=== PATIENT | female | born 1940 | race Caucasian/White ===

== ENCOUNTER → 2019-07-27 | Outpatient (CLI) | payer MEDICARE, OTHER ==
--- NOTE | 2019-07-28 09:11 | CT ---
EXAMINATION TYPE: CT abdomen pelvis w con DATE OF EXAM: 07/27/2019 HISTORY: Non-hodgkin's lymphoma. CT DLP: 457.8mGycm Automated Exposure Control for Dose Reduction was Utilized. CONTRAST: CT scan of the abdomen and pelvis is performed with IV Contrast, patient injected with 100ml mL of Is ovue 300. COMPARISON: None. FINDINGS: LUNG BASES: 4 mm left basilar solid pulmonary nodule is seen on image 8 of series 4. Mild fibrotic ch anges are present at the lung bases.. LIVER/GB: Hepatic parenchyma is diffusely hypoattenuated in comparison to that of the spleen, most co mmonly seen in hepatic steatosis. This finding limits evaluation for hepatic masses. No gross evidenc e of hepatic mass is seen. No intrahepatic biliary ductal dilatation. No cholelithiasis on CT. PANCREAS: No significant abnormality is seen. SPLEEN: Surgically absent. ADRENALS: No significant abnormality is seen. KIDNEYS: Severe left renal atrophy with diminutive size of the left renal artery. Right kidney demons trates multiple hypoattenuated subcentimeter lesions that are too small to accurately characterize an d a right inferior pole 1.4 cm solid mass with a Hounsfield unit of 50 and delayed average Hounsfield unit of 60. BOWEL: Moderate degree colonic fecal stasis. No dilated large or small bowel. LYMPH NODES: No greater than 1cm abdominal or pelvic lymph nodes are appreciated. OSSEOUS STRUCTURES: There is diffuse osseous demineralization and mild degenerative change of the spi ne. Transitional vertebrae at S1-S2. L1 compression deformity has height loss of approximately 20% an d mild 1 mm retropulsion of the superior endplate into the spinal canal without significant spinal ca nal stenosis. Levoscoliosis of the lumbar spine is also seen. OTHER: Prior ventral hernia repair is seen with numerous clips in the anterior abdomen and also surro unding the greater curvature of the gastric fundus. Moderate atheromatous changes of the abdominal ao rta is branches. Infrarenal ectasia measuring up to 2.2 x 2.2 cm.. IMPRESSION: 1. Small solid mass of the right lower pole of the kidney measuring 1.4 cm. Consideration could be gi shira to either percutaneous biopsy or definitive characterization with contrast-enhanced MRI of the ab domen. 2. No suspicious adenopathy in the abdomen or pelvis. 3. Mild degree hepatic steatosis. 4. L1 compression deformity that is age-indeterminate without priors for comparison. Correlate with p oint tenderness. MRI could evaluate for bone marrow edema if there is further clinical concern. 5. 4 mm pulmonary nodule of the left lung base. Consideration could be given to full workup of the ch est with CT thorax or follow-up for the left basilar pulmonary nodule CT thorax in one year.
== END | disposition home or self-care (01) ==
LOC: MERGE 07-20 14:00 → RADCTMAIN 14:55
PROVIDERS: ATTEND Family Medicine
DX: N28.89 Other specified disorders of kidney and ureter (principal); K76.0 Fatty (change of) liver, not elsewhere classified; C85.90 Non-Hodgkin lymphoma, unspecified, unspecified site; Z91.048 Other nonmedicinal substance allergy status
CPT/HCPCS: 82565; 84520; 74177; 36415; Q9967

== ENCOUNTER → 2019-08-12 | Outpatient (CLI) | payer MEDICARE, OTHER ==
--- NOTE | 2019-08-12 15:50 | CT ---
EXAMINATION TYPE: CT chest wo con DATE OF EXAM: 08/12/2019 COMPARISON: CT abdomen pelvis 07/27/2019 HISTORY: follow up pulmonary nodule CT DLP: 147.2 mGycm, Automated exposure control for dose reduction was used. CONTRAST: Performed injected with 0 mL of Isovue 300. TECHNIQUE: Axial images were obtained at 5 mm thick sections. Reconstructed images are reviewed on [employer] computer in the coronal plane. FINDINGS: Portion of the thyroid visualized is normal. There is a 0.7 cm nodule within the posterior lateral left lung base. Series 4 image 37. This previou sly measured 0.4 cm on 07/27/2019. Diffuse increased lung markings are present through the bilateral lung bases. This is developing from comparison. No enlarged mediastinal or hilar adenopathy is evident. The ascending aorta diameter at the level o f the main pulmonary artery is 3.8 cm. The main pulmonary artery diameter at the bifurcation is 2.3 cm. Coronary artery calcification is noted. Limited CT sections are obtained through the upper abdomen. Abdomen is essentially unremarkable. IMPRESSIONS: 1. Nodule size is increased over the short interval. Infectious etiology should be considered. There is increasing bibasilar lung markings.
== END | disposition home or self-care (01) ==
LOC: RADCTMAIN 13:50
PROVIDERS: ATTEND Family Medicine
DX: R91.1 Solitary pulmonary nodule (principal); R91.8 Other nonspecific abnormal finding of lung field
CPT/HCPCS: 71250

== ENCOUNTER → 2019-08-20 | Outpatient (CLI) | payer MEDICARE, OTHER ==
--- NOTE | 2019-08-20 14:35 | XR ---
EXAMINATION TYPE: XR mandible complete DATE OF EXAM: 08/20/2019 COMPARISON: NONE HISTORY: Pre-MRI clearance. Surgery for bone loss in the lower jaw. TECHNIQUE: 5 views of the mandible were obtained FINDINGS: There are 4 metallic surgical densities in the mandible. These are seen in the parasymphyse al regions. [place] teeth are absent. Diffuse osseous demineralization is seen. No acute mandibular fr acture identified. Degenerative change of the cervical spine is partially visualized. IMPRESSION: Mandibular postsurgical metallic densities. These will create artifact on MRI but appear embedded in the mandible and MRI safe.
== END | disposition home or self-care (01) ==
LOC: RAD 13:39
PROVIDERS: ATTEND Internal Medicine Hematology & Oncology
DX: C85.93 Non-Hodgkin lymphoma, unspecified, intra-abdominal lymph nodes (principal); E11.9 Type 2 diabetes mellitus without complications; I67.89 Other cerebrovascular disease; M12.9 Arthropathy, unspecified; Z98.890 Other specified postprocedural states
CPT/HCPCS: 70110

== ENCOUNTER 2019-10-19 16:53 | Emergency (ER) | payer MEDICARE, OTHER ==
[2019-10-19 17:02] VITALS: TEMP 97.9
[2019-10-19] MEDS ORDERED: ONDANSETRON 4 MG/2 ML VIAL IVP STA (17:37)
--- NOTE | 2019-10-19 17:41 | ED ---
Fall HPI - General Source: EMS Mode of arrival: EMS <Zane Malhotra - Last Filed: 10/19/19 20:30> <Margarette Rodrigues - Last Filed: 10/21/19 13:20> - General Chief Complaint: Fall Stated Complaint: Fall Time Seen by Provider: 10/19/19 17:30 - History of Present Illness Initial Comments: Patient is 79-year-old female presenting to emergency Department with a chief complaint of fall. Patient states she was on her way to the grocery store when she tripped over a curb and fell Forward. States she attended to brace herself during the fall. Patient reports most of her pain is located in the left supraorbital region. Patient does report some mild pain in the anterior aspect her right lower leg along with a small bleed from the region. Does report nausea but no vomiting. Patient does report loss of consciousness for a short period of time. Patient on blood thinners. Denies any extremity weakness or paresthesias. (Zane Malhotra) - Related Data Allergies Allergy/AdvReac Type Severity Reaction Status Date / Time amitriptyline Allergy Unknown Verified 10/19/19 17:46 aspirin Allergy Unknown Verified 10/19/19 17:46 brompheniramine Allergy Unknown Verified 10/19/19 17:46 ciprofloxacin Allergy Unknown Verified 10/19/19 17:46 cyclobenzaprine Allergy Unknown Verified 10/19/19 17:46 darifenacin Allergy Unknown Verified 10/19/19 17:46 doxepin Allergy Unknown Verified 10/19/19 17:46 doxycycline Allergy Unknown Verified 10/19/19 17:46 duloxetine Allergy Unknown Verified 10/19/19 17:46 hyoscyamine Allergy Unknown Verified 10/19/19 17:46 latex Allergy Unknown Verified 10/19/19 17:46 lithium Allergy Unknown Verified 10/19/19 17:46 nortriptyline Allergy Unknown Verified 10/19/19 17:46 omeprazole Allergy Unknown Verified 10/19/19 17:46 oxybutynin Allergy Unknown Verified 10/19/19 17:46 Penicillins Allergy Unknown Verified 10/19/19 17:46 phenylephrine Allergy Unknown Verified 10/19/19 17:46 pregabalin Allergy Unknown Verified 10/19/19 17:46 Sulfa (Sulfonamide Allergy Unknown Verified 10/19/19 17:46 Antibiotics) terbinafine Allergy Unknown Verified 10/19/19 17:46 trazodone Allergy Unknown Verified 10/19/19 17:46 Review of Systems ROS Other: All systems not noted in ROS Statement are negative. <Zane Malhotra - Last Filed: 10/19/19 20:30> ROS Other: All systems not noted in ROS Statement are negative. <RussellsadafMargarette Ewelina - Last Filed: 10/21/19 13:20> ROS Statement: Those systems with pertinent positive or pertinent negative responses have been documented in the HPI. 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 History of Any Multi-Drug Resistant Organisms: None Reported Past Surgical History: Appendectomy, Hernia Repair Additional Past Surgical History / Comment(s): splenectomy, jaw surgery Past Psychological History: No Psychological Hx Reported Smoking Status: Former smoker Past Alcohol Use History: None Reported Past Drug Use History: None Reported <Zane Malhotra - Last Filed: 10/19/19 20:30> General Exam Limitations: no limitations General appearance: alert, in no apparent distress Head exam: Present: normocephalic. Absent: atraumatic (Negative Ureña sign, negative hemotympanum, negative raccoon eyes.), normal inspection (Hematoma in the left supraorbital region.) Eye exam: Present: PERRL, EOMI, other (no hyphema, or pain with extraocular movements.). Absent: normal appearance (Hematoma), scleral icterus, conjunctival injection, nystagmus, periorbital swelling, periorbital tenderness Pupils: Present: normal accommodation ENT exam: Present: normal exam, normal oropharynx (No oral trauma), mucous membranes moist, TM's normal bilaterally, normal external ear exam Neck exam: Present: normal inspection, tenderness (Tenderness along the right side of the neck.), full ROM Respiratory exam: Present: normal lung sounds bilaterally. Absent: respiratory distress, wheezes Cardiovascular Exam: Present: regular rate, normal rhythm, normal heart sounds Extremities exam: Present: normal inspection (Small abrasion on the anterior aspect her right lower leg.), full ROM, tenderness (Tenderness in the region of abrasion.), normal capillary refill, other (+2 ulnar and radial pulses bilaterally.) Back exam: Present: normal inspection, full ROM Neurological exam: Present: alert, oriented X3 Psychiatric exam: Present: normal affect, normal mood Skin exam: Present: warm, dry, intact, normal color <Zane Malhotra - Last Filed: 10/19/19 20:30> Course Vital Signs 10/19/19 10/19/19 10/19/19 16:56 18:20 19:31 Temperature 97.9 F Pulse Rate 69 74 Respiratory 18 16 Rate Blood Pressure 200/90 195/97 169/77 O2 Sat by Pulse 99 97 Oximetry 10/19/19 20:57 Temperature Pulse Rate 72 Respiratory 16 Rate Blood Pressure 169/79 O2 Sat by Pulse 96 Oximetry Medical Decision Making - Lab Data Result diagrams: 10/19/19 17:52 10/19/19 19:31 <Zane Malhotra - Last Filed: 10/19/19 20:30> - Lab Data Result diagrams: 10/19/19 17:52 10/19/19 19:31 <Margarette Rodrigues - Last Filed: 10/21/19 13:20> - Medical Decision Making Patient is 79-year-old female presenting to emergency Department with a chief of a fall. Patient brought to the ED via EMS. Patient did have loss of consciousness but is not on any blood thinners. On physical examination patient does have a moderate to large left supraorbital hematoma. Patient is alert and oriented 3. No signs of hyphema, or pain with extraocular movement. CT brain and C-spine is unremarkable. Patient also did have an abrasion on the anterior aspect her right lower leg. X-ray of the right tib-fib is unremarkable. Chest and pelvic x-ray are also negative. CBC does show leukocytosis. Coags and UA are unremarkable. Initial CMP shows hyperkalemia, repeat potassium levels were obtained showing a level of 4.5. I suspect this is due to a hemolyzed sample. I offered admission to the patient, however she states she would rather be discharged and will go to her friend's house and live with them until she feels better. Return parameters thoroughly discussed with patient is understanding and agreeable. Case discussed with physician. (Zane Malhotra) I was available for consultation in the emergency department. The history and physical exam were done by the midlevel provider. I was consulted for this patients care. I reviewed the case with the midlevel provider and based on their presentation of the patient, I agree with the assessment, medical decision making and plan of care as documented. Chart was dictated using [employer] dictation software. Attempts were made to correct any dictation errors however some typographical errors may persist. Patient was seen during a national state of emergency due to the Covid-19 pandemic. Hospitalization was recommended however patient refused. (Margarette Rodrigues) - Lab Data Lab Results 10/19/19 10/19/19 10/19/19 Range/Units 17:52 17:52 17:52 WBC 15.2 H (3.8-10.6) k/uL RBC 4.19 (3.80-5.40) m/uL Hgb 14.0 (11.4-16.0) gm/dL Hct 42.3 (34.0-46.0) % MCV 100.9 H (80.0-100.0) fL MCH 33.3 (25.0-35.0) pg MCHC 33.0 (31.0-37.0) g/dL RDW 12.5 (11.5-15.5) % Plt Count 189 (150-450) k/uL Neutrophils % 71 % Lymphocytes % 21 % Monocytes % 5 % Eosinophils % 1 % Basophils % 1 % Neutrophils # 10.8 H (1.3-7.7) k/uL Lymphocytes # 3.2 (1.0-4.8) k/uL Monocytes # 0.7 (0-1.0) k/uL Eosinophils # 0.1 (0-0.7) k/uL Basophils # 0.1 (0-0.2) k/uL PT 9.8 (9.0-12.0) sec INR 0.9 (<1.2) APTT 24.3 (22.0-30.0) sec Sodium 133 L (137-145) mmol/L Potassium 5.7 H (3.5-5.1) mmol/L Chloride 99 (98-107) mmol/L Carbon Dioxide 25 (22-30) mmol/L Anion Gap 9 mmol/L BUN 19 H (7-17) mg/dL Creatinine 0.75 (0.52-1.04) mg/dL Est GFR (CKD-EPI)AfAm 88 (>60 ml/min/1.73 sqM) Est GFR (CKD-EPI)NonAf 77 (>60 ml/min/1.73 sqM) Glucose 146 H (74-99) mg/dL Calcium 9.6 (8.4-10.2) mg/dL Total Bilirubin 0.7 (0.2-1.3) mg/dL AST 46 H (14-36) U/L ALT 22 (4-34) U/L Alkaline Phosphatase 80 (38-126) U/L Total Protein 7.6 (6.3-8.2) g/dL Albumin 4.3 (3.5-5.0) g/dL Urine Color Urine Appearance (Clear) Urine pH (5.0-8.0) Ur Specific [place] (1.001-1.035) Urine Protein (Negative) Urine Glucose (UA) (Negative) Urine Ketones (Negative) Urine Blood (Negative) Urine Nitrite (Negative) Urine Bilirubin (Negative) Urine Urobilinogen (<2.0) mg/dL Ur Leukocyte Esterase (Negative) Urine RBC (0-5) /hpf Urine WBC (0-5) /hpf Ur Squamous Epith Cells (0-4) /hpf Urine Mucus (None) /hpf Coronavirus (PCR) (Not Detectd) 10/19/19 10/19/19 10/19/19 Range/Units 18:20 19:03 19:31 WBC (3.8-10.6) k/uL RBC (3.80-5.40) m/uL Hgb (11.4-16.0) gm/dL Hct (34.0-46.0) % MCV (80.0-100.0) fL MCH (25.0-35.0) pg MCHC (31.0-37.0) g/dL RDW (11.5-15.5) % Plt Count (150-450) k/uL Neutrophils % % Lymphocytes % % Monocytes % % Eosinophils % % Basophils % % Neutrophils # (1.3-7.7) k/uL Lymphocytes # (1.0-4.8) k/uL Monocytes # (0-1.0) k/uL Eosinophils # (0-0.7) k/uL Basophils # (0-0.2) k/uL PT (9.0-12.0) sec INR (<1.2) APTT (22.0-30.0) sec Sodium (137-145) mmol/L Potassium 4.5 (3.5-5.1) mmol/L Chloride (98-107) mmol/L Carbon Dioxide (22-30) mmol/L Anion Gap mmol/L BUN (7-17) mg/dL Creatinine (0.52-1.04) mg/dL Est GFR (CKD-EPI)AfAm (>60 ml/min/1.73 sqM) Est GFR (CKD-EPI)NonAf (>60 ml/min/1.73 sqM) Glucose (74-99) mg/dL Calcium (8.4-10.2) mg/dL Total Bilirubin (0.2-1.3) mg/dL AST (14-36) U/L ALT (4-34) U/L Alkaline Phosphatase (38-126) U/L Total Protein (6.3-8.2) g/dL Albumin (3.5-5.0) g/dL Urine Color Light Yellow Urine Appearance Clear (Clear) Urine pH 7.5 (5.0-8.0) Ur Specific [place] 1.009 (1.001-1.035) Urine Protein 1+ H (Negative) Urine Glucose (UA) Negative (Negative) Urine Ketones Negative (Negative) Urine Blood Negative (Negative) Urine Nitrite Negative (Negative) Urine Bilirubin Negative (Negative) Urine Urobilinogen <2.0 (<2.0) mg/dL Ur Leukocyte Esterase Negative (Negative) Urine RBC 1 (0-5) /hpf Urine WBC 1 (0-5) /hpf Ur Squamous Epith Cells <1 (0-4) /hpf Urine Mucus Rare H (None) /hpf Coronavirus (PCR) Not Detected (Not Detectd) Disposition Is patient prescribed a controlled substance at d/c from ED?: No Time of Disposition: 20:29 Decision Time: 20:29 <Zane Malhotra - Last Filed: 10/19/19 20:30> <Margarette Rodrigues - Last Filed: 10/21/19 13:20> Clinical Impression: Fall, Hematoma Disposition: HOME SELF-CARE Condition: Good Instructions (If sedation given, give patient instructions): Fall Prevention (ED) Additional Instructions: Follow up with primary care. Return to emergency department if symptoms worsen. Referrals: Elena Mcallister MD [Primary Care Provider] - 1-2 days
[2019-10-19 18:04] LABS: Basophils # (A) 0.1 k/uL (0-0.2); Basophils % (A) 1 %; Eosinophils # (A) 0.1 k/uL (0-0.7); Eosinophils % (A) 1 %; HCT 42.3 % (34.0-46.0); Lymphocytes # (A) 3.2 k/uL (1.0-4.8); Lymphocytes % (A) 21 %; MCH 33.3 pg (25.0-35.0); MCV 100.9 fL (80.0-100.0); Monocytes # (A) 0.7 k/uL (0-1.0); Monocytes % (A) 5 %; Neutrophils # (A) 10.8 k/uL (1.3-7.7); Neutrophils % (A) 71 %; Platelet Count 189 k/uL (150-450); RBC 4.19 m/uL (3.80-5.40); RDW 12.5 % (11.5-15.5); WBC 15.2 k/uL (3.8-10.6)
--- NOTE | 2019-10-19 18:18 | CT ---
EXAMINATION TYPE: CT brain jarek wo con DATE OF EXAM: 10/19/2019 COMPARISON: 03/31/2010 HISTORY: Fall today with Left orbital injury CT DLP: 1283.[address] of the brain was performed. The ventricles, basal cisterns and sulci overlying the cerebral convexities demonstrate mild enlargem ent. There is no evidence for intracranial hemorrhage or sulcal effacement. There is decreased attenuatio n about the periventricular white matter and deep white matter of both cerebral hemispheres, compatib le with chronic small vessel ischemia. No mass effects are seen. If symptoms persist consider MRI. Osseous calvarium is intact. Large periorbital/left supraorbital hematoma. The globes appear to be in tact bilaterally. IMPRESSION: 1. Age related atrophic and chronic small vessel ischemic change without acute intracranial process seen at this time. CT Cervical Spine: Unenhanced CT of the cervical spine was performed with bone and soft tissue window settings submitted . Coronal and sagittal reconstruction is obtained. There is normal alignment and prevertebral soft tissues. No evidence for acute cervical fracture . Scattered degenerative disc disease and spondylosis. Biapical scarring. IMPRESSION: 1. No evidence for acute fracture or subluxation of the cervical spine.
[2019-10-19 18:20] LABS: INR 0.9 (<1.2); Partial Thromboplastin Time 24.3 sec (22.0-30.0); Prothrombin Time 9.8 sec (9.0-12.0)
[2019-10-19 18:21] VITALS: RESP 16
[2019-10-19] MEDS ORDERED: cloNIDine HCL 0.1 MG TAB PO STA (18:26)
[2019-10-19 18:37] LABS: Albumin 4.3 g/dL (3.5-5.0); Calcium 9.6 mg/dL (8.4-10.2); Potassium 5.7 mmol/L (3.5-5.1); Total Bilirubin 0.7 mg/dL (0.2-1.3); Total Protein 7.6 g/dL (6.3-8.2)
[2019-10-19 19:18] LABS: Appearance,Urine Clear (Clear); Bilirubin,Urine Negative (Negative); Blood,Urine Negative (Negative); Color,Urine Light Yellow; Glucose,Urine (UA) Negative (Negative); Ketones,Urine Negative (Negative); Leukocyte Esterase,Urine Negative (Negative); Mucus,Urine Rare /hpf; Nitrite,Urine Negative (Negative); PH, Urine 7.5 (5.0-8.0); Protein,Urine 1+ (Negative); RBC,Urine 1 /hpf (0-5); Specific Gravity,Urine 1.009 (1.001-1.035); Squamous Epithelial Cell,Urine <1 /hpf (0-4); Urobilinogen,Urine <2.0 mg/dL (<2.0); WBC,Urine 1 /hpf (0-5)
--- NOTE | 2019-10-19 19:19 | XR ---
EXAMINATION TYPE: XR pelvis AP view DATE OF EXAM: 10/19/2019 CLINICAL HISTORY: pain TECHNIQUE: Single view the pelvis is submitted. FINDINGS: No evidence for fracture, dislocation or bony lesion. Joint spaces are well-preserved. S I joints appear symmetric. IMPRESSION: 1. No acute fracture or dislocation seen. ICD 10 NO FRACTURE, INITIAL EVALUATION
--- NOTE | 2019-10-19 19:19 | XR ---
EXAMINATION TYPE: XR chest 2V DATE OF EXAM: 10/19/2019 COMPARISON: 03/25/2010 HISTORY: Shortness of breath TECHNIQUE: Frontal and lateral views of the chest are obtained. FINDINGS: Scattered senescent parenchymal changes noted. Hyperinflation compatible with COPD. No evidence for infiltrate. No evidence for atelectasis. Heart size is stable. Mediastinal structures are stable and grossly unremarkable. No evidence for hilar prominence. Degenerative changes dorsal spine. IMPRESSION: 1. No evidence for acute pulmonary disease.
--- NOTE | 2019-10-19 19:20 | XR ---
EXAMINATION TYPE: XR tibia fibula RT DATE OF EXAM: 10/19/2019 CLINICAL HISTORY: pain TECHNIQUE: AP and lateral images of the right tibia and fibula are obtained. COMPARISON: None. FINDINGS: There is no acute fracture/dislocation evident. The joint spaces appear within normal rice its. The overlying soft tissue appears unremarkable. IMPRESSION: There is no acute fracture or dislocation seen. ICD 10 NO FRACTURE, INITIAL EVALUATION
[2019-10-19 20:59] VITALS: BP 169/79; PULSE 72
== END 2019-10-19 20:57 | disposition home or self-care (01) ==
LOC: EC 16:53
DX: Z03.818 Encounter for observation for suspected exposure to other biological agents ruled out (principal); S00.83XA Contusion of other part of head, initial encounter; S80.811A Abrasion, right lower leg, initial encounter; D72.829 Elevated white blood cell count, unspecified; E87.5 Hyperkalemia; Z87.891 Personal history of nicotine dependence; Z88.1 Allergy status to other antibiotic agents; Z88.8 Allergy status to other drugs, medicaments and biological substances; Z88.6 Allergy status to analgesic agent; Z91.040 Latex allergy status; Z88.0 Allergy status to penicillin; Z88.2 Allergy status to sulfonamides; Z86.73 Personal history of transient ischemic attack (TIA), and cerebral infarction without residual deficits; W01.10XA Fall on same level from slipping, tripping and stumbling with subsequent striking against unspecified object, initial encounter; Y93.89 Activity, other specified
CPT/HCPCS: 96374; 99284; 36415; 80053; 84132; 85025; 85610; 85730; 81001; 87635; 72170; 73590; 71046; 72125; 70450; J2405

== ENCOUNTER → 2019-11-18 | Outpatient (CLI) | payer MEDICARE, OTHER ==
--- NOTE | 2019-11-18 11:33 | XR ---
EXAMINATION TYPE: XR facial bones limited DATE OF EXAM: 11/18/2019 COMPARISON: Mandible x-ray August 20, 2019. CT brain October 19, 2019. HISTORY: Fall injury one month earlier with persistent pain. TECHNIQUE: Facial bones limited with open and closed mouth frontal and true lateral images. FINDINGS: No acute displaced fracture of the nasal bones. Orbital floors and smith are grossly intact without displaced fracture. Visualized mandible is grossly intact. Persistent mandibular dental hard alfonso nails. Paranasal sinuses remain clear. IMPRESSION: As above.
--- NOTE | 2019-11-18 11:38 | US ---
EXAMINATION TYPE: US thyroid st tissue head/neck DATE OF EXAM: 11/18/2019 COMPARISON: CT brain October 19, 2019 CLINICAL HISTORY: S00.83XA Contusion of othe. Patient fell and hit her head. Palpable area left eyebr ow At the area of the patients palpable lump, left eyebrow, there is a complex area visualized measuring 2.5 x 0.5 x 2.1 cm IMPRESSION: Small residual supraorbital hematoma remains present improved from CT study October 19, 2019
--- NOTE | 2019-11-18 11:58 | CT ---
EXAMINATION TYPE: CT chest wo con DATE OF EXAM: 11/18/2019 COMPARISON: 08/12/2019 HISTORY: 79-year-old female pulmonary nodule TECHNIQUE: Contiguous axial scanning of the chest without IV contrast. Coronal and sagittal reconstru ctions performed. CT DLP: 189.3 mGycm Automated exposure control for dose reduction was used. FINDINGS: Heart per limits of normal in size without pericardial effusion. Circumference and LAD calcifications are present. Ectatic ascending aorta at 3.7 cm. Mild atherosclerotic arch calcifications with bovine configuration to the aortic arch. Scattered nonenlarged mediastinal lymph nodes measuring up to 7 mm in the low right paratracheal ciaran on. Mild to moderate interstitial densities in the lower lungs with mild bronchiolectasis and associated mild groundglass. No alexander honeycombing is seen. A 7 mm subpleural pulmonary nodule peripheral left lower lobe remains unchanged for 3 months. No consolidation or pleural effusion. Tiny hiatal hernia. Postsurgical changes of prior abdominal wall mesh repair and some additional surg ical clips in the left upper quadrant. Atrophic left kidney. Bones: Dextroconvex curvature centered along the mid lumbar spine. Mild degenerative disc disease mid thoracic spine. Superior endplate deformity of L1 is unchanged compatible with a chronic injury. IMPRESSION: 1. 7 MM LEFT LOWER LOBE PULMONARY NODULE STABLE FOR 3 MONTHS. ADDITIONAL 6-9 MONTH FOLLOW-UP RECOMMEN DED FOR CONTINUED SURVEILLANCE. 2. REDEMONSTRATED INTERSTITIAL CHANGES WITH SOME MILD BRONCHIOLECTASIS AND GROUNDGLASS IN THE LOWER L UNGS. CORRELATE FOR POSSIBLE ETIOLOGY SUCH NSIP OR CHRONIC ASPIRATION AND SCARRING. 3. TINY HIATAL HERNIA.
== END | disposition home or self-care (01) ==
LOC: RADUSWWP 10:52
PROVIDERS: ATTEND Family Medicine
DX: J47.9 Bronchiectasis, uncomplicated (principal); R91.8 Other nonspecific abnormal finding of lung field; S00.83XA Contusion of other part of head, initial encounter; Z88.8 Allergy status to other drugs, medicaments and biological substances; Z88.6 Allergy status to analgesic agent; Z88.1 Allergy status to other antibiotic agents; Z91.09 Other allergy status, other than to drugs and biological substances
CPT/HCPCS: 70140; 71250; 76536

== ENCOUNTER → 2020-01-14 | Outpatient (CLI) | payer MEDICARE, OTHER ==
--- NOTE | 2020-01-14 14:42 | US ---
EXAMINATION TYPE: US carotid duplex BILAT DATE OF EXAM: 01/14/2020 COMPARISON: NONE CLINICAL HISTORY: H54.7 VISION LOSS. EXAM MEASUREMENTS: RIGHT: Peak Systolic Velocity (PSV) cm/sec ----- Right CCA: 55.2 ----- Right ICA: 60.9 ----- Right ECA: 67.7 ICA/CCA ratio: 1.1 RIGHT: End Diastole cm/sec ----- Right CCA: 11.8 ----- Right ICA: 9.0 ----- Right ECA: 0.0 LEFT: Peak Systolic Velocity (PSV) cm/sec ----- Left CCA: 59.8 ----- Left ICA: 61.6 ----- Left ECA: 69.4 ICA/CCA ratio: 1.0 LEFT: End Diastole cm/sec ----- Left CCA: 13.6 ----- Left ICA: 19.7 ----- Left ECA: 0.0 VERTEBRALS (direction of flow): Right Vertebral: Antegrade Left Vertebral: Antegrade Rhythm: Normal Grayscale, color Doppler, spectral Doppler imaging performed of the carotid arteries. Waveform analys is does not show significant stenosis of the internal carotid arteries. No significant stenosis seen. No elevated velocities. Mild bilateral plaque noted. IMPRESSION: No hemodynamic significant stenosis of the proximal internal carotid arteries by Doppler criteria, an indirect measurement of carotid stenosis Criteria for Assigning % of Stenosis / Diameter reduction (Estimation based on the indirect measurements of the internal carotid artery velocities (ICA PSV). 1. Normal (no stenosis)=ICA PSV < 125 cm/s: ratio < 2.0: ICA EDV<40 cm/s. 2. Less than 50% stenosis=ICA PSV < 125 cm/s: ratio < 2.0: ICA EDV<40 cm/s. 3. 50 to 69% stenosis=ICA PSV of 125 to 230 cm/s: ration 2.0 ? 4.0: ICA EDV 40-100 cm/s. 4. Greater than 70% stenosis to near occlusion= ICA PSV > 230 cm/s: ratio > 4.0: ICA EDV > 100 cm/s. 5. Near occlusion= ICA PSV velocities may be low or undetectable: variable ratio and ICA EDV. 6. Total occlusion=unable to detect flow.
== END | disposition home or self-care (01) ==
LOC: RADUSWWP 14:02
PROVIDERS: ATTEND Family Medicine
DX: H54.7 Unspecified visual loss (principal)
CPT/HCPCS: 93880

== ENCOUNTER → 2020-01-20 | Outpatient (CLI) | payer MEDICARE, OTHER ==
--- NOTE | 2020-01-21 06:20 | MR ---
EXAMINATION TYPE: MR kidney wo/w con DATE OF EXAM: 01/20/2020 COMPARISON: CT abdomen and pelvis July 27, 2019. HISTORY: Rt renal Mass CONTRAST: Standard multiplanar, multisequence MRI departmental protocol utilizing 6.5 mL intravenous Gadavist g adolinium contrast. FINDINGS: Slightly suboptimal study as patient has difficulty holding breath. Kidneys: Redemonstration of asymmetric diminished size and cortical thinning of the left kidney versu s right kidney. No hydronephrosis noted bilaterally. Corresponding to CT there is exophytic 1.7 cm ro und lesion lower pole level right kidney seen best coronal image 17, this lesion shows T2 hypointensi ty. Lesion fairly isointense on T1 weighted images relative to rest of kidney with signal dropout and T1 hyperintensity on fat saturated T1 images. No definitive enhancement. Findings consistent with a proteinaceous or hemorrhagic cyst. No additional concerning solid or cystic lesion in the right kidne y. Other: Contracted gallbladder is present. Splenomegaly spleen are not seen and may be surgically abse nt. Pancreas and both adrenal glands remain within normal limits. No suspicious bowel dilatation. No abdominal ascites. Artifact from clips from hernia repair surgery in the anterior abdominal wall are identified. There is levoconvex scoliosis centered mid lumbar spine redemonstrated. Lung bases are cl ear. IMPRESSION: Exophytic of concern in lower pole right kidney is strongly favored benign with signal dr opout and T2 hypointensity with lack of enhancement suggesting internal blood product and/or proteina ceous material. Bosniak 2 lesion.
== END | disposition home or self-care (01) ==
LOC: RADMRIMAIN 10:49
PROVIDERS: ATTEND Urology
DX: D41.01 Neoplasm of uncertain behavior of right kidney (principal)
CPT/HCPCS: 74183; A9585

== ENCOUNTER → 2020-01-26 | Outpatient (CLI) | payer MEDICARE, OTHER ==
--- NOTE | 2020-01-26 18:13 | MR ---
EXAMINATION TYPE: MR brain wo con DATE OF EXAM: 01/26/2020 COMPARISON: NONE HISTORY: 80-year-old female headache, dizziness, vision change after trauma. TECHNIQUE: Multiplanar, multisequence images of the brain and brainstem were acquired without IV con trast. Diffusion weighted imaging is performed. FINDINGS: No evidence for acute infarction, hemorrhage, mass, mass effect, midline shift, herniation, effacemen t of basal cisterns, or extra-axial fluid collection. Some bright signal in the right centrum semiovale on DWI shows no corresponding low signal on ADC map . Findings compatible with T2 shine through. There is moderate cerebral cortical atrophy. No hydrocephalus. Major intracranial flow voids are intact. T2/FLAIR weighted sequences show confluent bright white matter change in both cerebral hemispheres es pecially along the periventricular and deep white matter regions but also extending into the subcorti pola regions on both sides. Foci are present within the bilateral paramedian randi and within the inter nal capsules. Persistent artifacts on the FLAIR sequences with loss of CSF suppression. Somewhat low T2-weighted signal in the bilateral basal ganglia. T2*gradient sequence shows no abnormal susceptibility artifact to suggest prior intracranial hemorrha ge. Midline structures demonstrate normal morphology. The craniocervical junction is normal. The visualized sinuses are clear and the globes are intact. IMPRESSION: 1. No acute intracranial abnormality seen. Some bright signal in the right centrum semiovale on DWI c orresponds to T2 shine through rather than true restricted diffusion. 2. Severe burden of T2 bright white matter change throughout the brain. Some differential considerati ons include severe burden of chronic small vessel ischemic disease, vasculitis including Lyme's disea se, severe chronic migraines, and demyelinating disease. 3. Somewhat low signal in the bilateral basal ganglia. Findings may be the result of calcium depositi on or age-related change. MS and Parkinson's disease are some additional considerations. Clinically c orrelate. 4. Moderate cerebral cortical atrophy.
== END | disposition home or self-care (01) ==
LOC: RADMRIMAIN 15:00
PROVIDERS: ATTEND Family Medicine
DX: R90.82 White matter disease, unspecified (principal); G31.9 Degenerative disease of nervous system, unspecified; R42 Dizziness and giddiness; H54.7 Unspecified visual loss
CPT/HCPCS: 70551

== ENCOUNTER → 2020-02-16 | Outpatient (CLI) | payer MEDICARE, OTHER ==
--- NOTE | 2020-02-16 15:39 | MR ---
EXAMINATION TYPE: MR brain wo con DATE OF EXAM: 02/16/2020 COMPARISON: MRI brain January 26, 2020. HISTORY: Dizziness, headaches, visual changes TECHNIQUE: Multiplanar, multisequence imaging of the brain and brainstem is performed without IV cont rast. Pituitary gland protocol. FINDINGS: Pituitary gland is normal in size and sella turcica with superior concave border. Suprasellar cistern is maintained. Pituitary stalk is unremarkable in the midline coronal image 13. Optic chiasm is not effaced. Craniocervical junction redemonstrated within normal limits. Visualized brain parenchyma jessika ws diffuse cerebral atrophy and nonspecific white matter changes similar to recent MRI. IMPRESSION: Noncontrast study shows no suspicious sellar or suprasellar mass to suggest pituitary mac roadenoma.
== END | disposition home or self-care (01) ==
LOC: RADMRIMAIN 14:47
PROVIDERS: ATTEND Family Medicine
DX: H54.7 Unspecified visual loss (principal); R42 Dizziness and giddiness; R51 Headache
CPT/HCPCS: 70551

== ENCOUNTER → 2020-04-20 | Outpatient (CLI) | payer MEDICARE, OTHER ==
--- NOTE | 2020-04-25 11:13 | MM ---
Reason for exam: screening (asymptomatic). History: Patient is postmenopausal and history of other cancer. Physical Findings: A clinical breast exam by your physician is recommended on an annual basis and results should be correlated with mammographic findings. MG 3D Screening Mammo W/Cad Bilateral CC and MLO view(s) were taken. No prior studies available for comparison. The breast tissue is extremely dense which could obscure a lesion on mammography. There is no discrete abnormality. No significant changes when compared with prior studies. ASSESSMENT: Negative, BI-RAD 1 RECOMMENDATION: Routine screening mammogram of both breasts in 1 year.
== END | disposition home or self-care (01) ==
LOC: RADMAMWWP 10:39
PROVIDERS: ATTEND Internal Medicine Hematology & Oncology
DX: Z12.31 Encounter for screening mammogram for malignant neoplasm of breast (principal)
CPT/HCPCS: 77063; 77067

== ENCOUNTER → 2020-08-17 | Outpatient (CLI) | payer MEDICARE, OTHER ==
--- NOTE | 2020-08-17 22:47 | CT ---
EXAMINATION TYPE: CT chest wo con DATE OF EXAM: 08/17/2020 COMPARISON: 11/18/2019 HISTORY: f/u nodules CT DLP: 174.9 mGycm, Automated exposure control for dose reduction was used. CONTRAST: Performed injected with 0 mL of Isovue 300. TECHNIQUE: Axial images were obtained at 5 mm thick sections. Reconstructed images are reviewed on [employer] computer in the coronal plane. FINDINGS: Portion of the thyroid visualized is normal. There is a 0.6 cm nodule within the posterior lateral left lung base. Series 4 image 40. This is stab le from comparison. There is mild increased areas of pneumonitis through the lung bases. Findings are nonspecific. No enlarged mediastinal or hilar adenopathy is evident. The ascending aorta diameter at the level o f the main pulmonary artery is 4.0 cm. The main pulmonary artery diameter at the bifurcation is 2.4 cm. Coronary artery calcification is present. Limited CT sections are obtained through the upper abdomen. Left kidney appears atrophic. Fecal debri s is within the colon. IMPRESSIONS: 1. Stable left lower lobe nodule. No increasing or new nodules evident. Follow-up exam in 6 months is recommended. Nodule should be confirmed as stable over the course of 2 years.
== END ==
LOC: RADCTMAIN 16:04
PROVIDERS: ATTEND Family Medicine
DX: R91.1 Solitary pulmonary nodule (principal)
CPT/HCPCS: 71250

== ENCOUNTER → 2020-08-26 | Outpatient (CLI) | payer MEDICARE, OTHER ==
[2020-08-27 08:00] LABS: EBV-EA (IgG) <0.2 AI; EBV-EBNA(IgG) >8.0 AI; EBV-VCA (IgG) >8.0 AI
[2020-08-27 08:27] LABS: EBV-VCA (IgM) <0.2 AI
== END ==
LOC: LABWHC1 14:43
PROVIDERS: ATTEND Family Medicine
DX: Z20.822 Contact with and (suspected) exposure to COVID-19 (principal); R61 Generalized hyperhidrosis
CPT/HCPCS: 86665 ×2; 86663; 86664; 86644; 86645; 36415; U0003; U0005

== ENCOUNTER 2021-03-20 05:16 | Emergency (ER) | payer MEDICARE, OTHER ==
[2021-03-20 05:26] VITALS: RESP 18
--- NOTE | 2021-03-20 06:35 | ED ---
General Adult HPI - General Chief complaint: Fall Stated complaint: Fall, Head Injury Time Seen by Provider: 03/20/21 06:08 Source: patient, EMS, RN notes reviewed Mode of arrival: EMS - History of Present Illness Initial comments: 81-year-old female presents to the emergency room for a chief complaint of fall. Patient reports she was sitting on the bedside commode in her left leg went numb because of the way she was sitting. When she stood up she fell at and hit her head and nose against the wall. No loss of consciousness. Patient does not take blood thinners. Patient's only complaint is her nose was bleeding and it has since resolved.Patient has no other complaints at this time including shortness of breath, chest pain, abdominal pain, nausea or vomiting, headache, or visual changes. - Related Data Previous Rx's Medication Instructions Recorded Azithromycin [Zithromax Z-pack (6 250 mg PO DIRECTED #6 tab 03/20/21 tabs)] Allergies Allergy/AdvReac Type Severity Reaction Status Date / Time amitriptyline Allergy Unknown Verified 03/20/21 05:27 aspirin Allergy Unknown Verified 03/20/21 05:27 brompheniramine Allergy Unknown Verified 03/20/21 05:27 ciprofloxacin Allergy Unknown Verified 03/20/21 05:27 cyclobenzaprine Allergy Unknown Verified 03/20/21 05:27 darifenacin Allergy Unknown Verified 03/20/21 05:27 doxepin Allergy Unknown Verified 03/20/21 05:27 doxycycline Allergy Unknown Verified 03/20/21 05:27 duloxetine Allergy Unknown Verified 03/20/21 05:27 hyoscyamine Allergy Unknown Verified 03/20/21 05:27 latex Allergy Unknown Verified 03/20/21 05:27 lithium Allergy Unknown Verified 03/20/21 05:27 nortriptyline Allergy Unknown Verified 03/20/21 05:27 omeprazole Allergy Unknown Verified 03/20/21 05:27 oxybutynin Allergy Unknown Verified 03/20/21 05:27 Penicillins Allergy Unknown Verified 03/20/21 05:27 phenylephrine Allergy Unknown Verified 03/20/21 05:27 pregabalin Allergy Unknown Verified 03/20/21 05:27 Sulfa (Sulfonamide Allergy Unknown Verified 03/20/21 05:27 Antibiotics) terbinafine Allergy Unknown Verified 03/20/21 05:27 trazodone Allergy Unknown Verified 03/20/21 05:27 Review of Systems ROS Statement: Those systems with pertinent positive or pertinent negative responses have been documented in the HPI. ROS Other: All systems not noted in ROS Statement are negative. 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 Absent: scleral icterus, conjunctival injection ENT exam: Present: normal oropharynx, normal external ear exam, other (Patient has mild ecchymosis noted to the nasal bridge.) Neck exam: Present: normal inspection, full ROM. Absent: tenderness Respiratory exam: Present: normal lung sounds bilaterally. Absent: respiratory distress, wheezes Cardiovascular Exam: Present: regular rate, normal rhythm, normal heart sounds GI/Abdominal exam: Present: soft, normal bowel sounds. Absent: distended, tenderness Extremities exam: Present: other (Moving all extremities without injury) Back exam: Absent: vertebral tenderness Course Vital Signs 03/20/21 03/20/21 05:20 06:00 Temperature 98.1 F Pulse Rate 88 88 Respiratory 18 18 Rate Blood Pressure 171/89 191/95 O2 Sat by Pulse 94 L Oximetry Medical Decision Making - Medical Decision Making CT brain shows no acute intracranial abnormality. CT cervical spine shows no acute fracture. There is a subtle nasal bone fracture with no depression or angulation. There is also a nondisplaced maxillary spine fracture. Patient will be certain antibiotics. Will follow-up with her doctor. will return for any worsening. Disposition Clinical Impression: Nasal bone fracture, Fall Disposition: HOME SELF-CARE Condition: Good Instructions (If sedation given, give patient instructions): Nasal Fracture (ED) Additional Instructions: Take antibiotic as directed. Follow up with ENT. Take Tylenol as needed for pain. Return to the emergency room for any worsening symptoms. Prescriptions: Azithromycin [Zithromax Z-pack (6 tabs)] 250 mg PO DIRECTED #6 tab Is patient prescribed a controlled substance at d/c from ED?: No Referrals: Elena Mcallister MD [Primary Care Provider] - 1-2 days Casey Hurley MD [STAFF PHYSICIAN] - 1-2 days Time of Disposition: 08:06
--- NOTE | 2021-03-20 07:35 | CT ---
EXAMINATION TYPE: CT brain jarek black con DATE OF EXAM: 03/20/2021 COMPARISON: 10/19/2019 HISTORY: 81-year-old female with pain after Fall, head injury CT DLP: 1084 mGycm Automated exposure control for dose reduction was used. Technique: Examination of the head was done in axial plane without intravenous contrast. Coronal and sagittal reconstructions performed. CT of the cervical spine was obtained in axial plane without intravenous injection of contrast mater ial. Coronal and sagittal reformatted images were obtained from the axial views for evaluation of f ractures, spinal alignment and canal. FINDINGS: Head: There is no evidence of acute intracranial hemorrhage, acute ischemic changes, mass, mass-effect, or extra-axial fluid collection. There is no effacement of cerebral sulci or basal subarachnoid cister ns. There is no hydrocephalus. There is no midline shift. Alvarez-white matter distinction is preserv ed. No calvarial fracture. Facial bones reported separately. Mastoid air cells well pneumatized. Atherosclerotic calcifications within the carotid siphons. There are moderate patchy white matter hyp odensities in both cerebral hemispheres and mild cerebral cortical volume loss. Cervical spine: No craniocervical junction of the body, predental space widening, or prevertebral soft tissue swellin g. Some degenerative changes present at the C1 dens articulation. Degenerative grade 1 anterolisthesis C3-C4 and C4-C5. Moderately advanced discogenic degenerative change C5-C7 levels with disc space narrowing, endplate s clerosis and irregularity, and focal left paracentral disc osteophyte complex that likely focally ind ents the ventral cord. Additional broad-based discussed by complex at C6/C7 likely abuts the ventral cord as well. At least mild spinal canal stenosis at both these levels. No acute fracture of the cervical spine. Moderate right neuroforaminal stenosis at C3-C4. Moderate to severe on the left at C5-C6. Mild left-sided neuroforaminal stenosis at C6/C7. Sagittal and coronal reformatted images confirm above findings. COMBINED IMPRESSION: 1. No acute intracranial abnormality seen. Similar moderate patchy burden of chronic small vessel isc hemic disease and mild cerebral atrophy. 2. No acute fracture of the cervical spine. Moderate to advanced spondylotic change particularly from C5 through C7 levels. Degenerative grade 1 anterolisthesis C3-C4 and C4-C5. 3. Facial bones reported separately.
--- NOTE | 2021-03-20 07:47 | CT ---
EXAMINATION TYPE: CT facial bones wo con DATE OF EXAM: 03/20/2021 COMPARISON: None HISTORY: 81-year-old female pain after fall, head injury TECHNIQUE: Contiguous axial scanning of the facial bones without IV contrast. Coronal reconstructions performed. CT DLP: 1084 mGycm Automated exposure control for dose reduction was used. FINDINGS: Dental implants within the maxilla. The mandible and TMJs are intact. Pterygoid plates and zygomatic arches are intact. Orbits and globes appear intact. There is rightward nasal septal deviation. Minimal offset noted along the left nasal bone, axial imag e 86. Prominent soft tissue swelling overlying the nose but otherwise, no depressed or angulated nasa l bone fracture seen. There is some irregularity at the level of the maxillary spine, axial image 36 and coronal image 17. No layering fluid in the paranasal sinuses. IMPRESSION: 1. SOFT TISSUE SWELLING INVOLVING THE NOSE. THERE IS A SUBTLE 1 MM STEP-OFF INVOLVING THE LEFT NASAL BONE SUGGESTING A SUBTLE FRACTURE. NO DEPRESSED OR ANGULATED NASAL BONE FRACTURE. 2. SOME IRREGULARITY AT THE LEVEL OF THE MAXILLARY SPINE SUGGESTS NONDISPLACED FRACTURE HERE WELL. 3. RIGHTWARD NASAL SEPTAL DEVIATION NOTED.
[2021-03-20 08:24] VITALS: BP 151/77; PULSE 89; TEMP 98
== END 2021-03-20 08:21 | disposition home or self-care (01) ==
LOC: SUPCPDRO 05:16 → EC 05:16
DX: S02.2XXA Fracture of nasal bones, initial encounter for closed fracture (principal); E11.9 Type 2 diabetes mellitus without complications; I10 Essential (primary) hypertension; Z87.891 Personal history of nicotine dependence; Z88.0 Allergy status to penicillin; Z88.2 Allergy status to sulfonamides; Z86.73 Personal history of transient ischemic attack (TIA), and cerebral infarction without residual deficits; Z90.49 Acquired absence of other specified parts of digestive tract; W18.39XA Other fall on same level, initial encounter; W22.01XA Walked into wall, initial encounter
CPT/HCPCS: 70450; 70486; 72125; 99284

== ENCOUNTER → 2021-04-11 | Outpatient (CLI) | payer MEDICARE, OTHER ==
--- NOTE | 2021-04-11 14:58 | CT ---
EXAMINATION TYPE: CT chest abdomen wo con DATE OF EXAM: 04/11/2021 COMPARISON: 08/17/2020, 12/15/2019, 08/12/2019, 07/27/2019 HISTORY: 81-year-old female with right sided renal mass, abnormal lung field TECHNIQUE: Contiguous axial scanning of the chest and abdomen without IV contrast. Coronal and sagitt al reconstructions performed. CT DLP: 301.1 mGycm Automated exposure control for dose reduction was used. FINDINGS: CHEST: The heart is normal size without pericardial effusion. LAD and circumflex coronary artery calcificati ons are present. Mild ectasia ascending aorta 3.6 cm. Moderate is chronic arch calcifications. Conventional vessel bra nching anatomy. Additional mild atherosclerotic calcification continues down the descending thoracic aorta. Borderline to mildly enlarged caliber to the main right and left pulmonary arteries measuring 2.7 and 2.6 cm, respectively, suggesting underlying pulmonary hypertension. AP window lymph node is smaller at 7 mm versus 8 mm, previously. Precarinal lymph node measures 9 mm, unchanged. Subcarinal lymph node at 1.2 cm is also unchanged. No progressive thoracic lymphadenopath y. Heterogeneously dense breast tissues. Routine screening mammograms are recommended. Scattered mild interstitial scarring and mild emphysematous change. Some groundglass and septal lines in the lower lungs. 7 mm posterior left lower lobe pulmonary nodule relatively unchanged for one and a half years. Additi onal one-year follow-up recommended to ensure at least 2 years of stability. ABDOMEN: Prior ventral abdominal wall mesh repair. Multiple surgical clips along the anterior left upper quadr ant. Noncontrast appearance of the liver, gallbladder, adrenal glands, and pancreas show no gross abnormal body. Spleen appears surgically absent. Atrophic left kidney. 2.0 cm exophytic lesion lower pole right kidney compared to 1.4 cm on 07/27/2019 (as measured on coron al series). This lesion shows intermediate attenuation around 30 Hounsfield units and could represent a complicated cyst. An indolent solid mass/neoplasm should be excluded. Consider further assessment with renal ultrasound to better characterize. Stable 7 mm focal contour lobulation lateral mid right kidney suggesting a benign cyst given its stab ility. Redemonstrated atrophic left kidney. Moderate atherosclerotic calcifications infrarenal abdominal aorta and common iliac arteries. Fusifor m ectasia infrarenal abdominal aorta 2.7 cm versus 2.4 cm on 07/27/2019. No dilated small bowel, free fluid, or free air. No mesenteric or retroperitoneal lymphadenopathy. Redemonstrated surgerized and patulous bowel loop in the anterior midabdomen. There is some irregular mural-based thickening, axial image 79 that could represent adherent stool or abnormal soft tissue t hickening. Pelvis not imaged. BONES: S-shaped scoliotic curvature of the thoracolumbar spine. Mild superior endplate deformity L1 is uncha nged back to 07/27/2019 compatible with remote endplate injury. IMPRESSION: 1. COPD WITH MILD EMPHYSEMA. STABLE INTERSTITIAL THICKENING AND GROUNDGLASS IN THE LOWER LUNGS. CONSI ISHA NSIP, DIP, OR OTHER INTERSTITIAL FIBROSIS. 2. A 7 MM LEFT BASILAR PULMONARY NODULE STABLE FOR 1.5 YEARS. ADDITIONAL ONE-YEAR FOLLOW-UP TO DOCUME NT AT LEAST 2 YEARS OF STABILITY. 3. INDETERMINATE 2.0 CM EXOPHYTIC RIGHT LOWER POLE RENAL MASS. ATTENUATION OF 30 HOUNSFIELD UNITS. TH IS MEASURED 1.4 CM ON 07/27/2019 AND COULD REPRESENT A COMPLICATED CYST. AN INDOLENT SOLID MASS IS NOT EXCLUDED AT THIS TIME. CONSIDER RENAL ULTRASOUND TO ATTEMPT FURTHER CHARACTERIZATION. OTHERWISE, SIX -MONTH FOLLOW-UP CT TO REASSESS. 4. PRIOR SURGICAL CHANGE INVOLVING A LOOP OF BOWEL IN THE ANTERIOR MID ABDOMEN. THIS IS CHRONICALLY D ISTENDED AND NOW SHOWS SOME IRREGULAR MURAL-BASED THICKENING THAT COULD REPRESENT ADHERENT STOOL vers us ABNORMAL SOFT TISSUE THICKENING. THE FORMER IS FAVORED. ATTENTION ON THE SIX-MONTH FOLLOW-UP CT. 5. INCIDENTAL: CAD, PULMONARY ARTERIAL HYPERTENSION, PRIOR SPLENECTOMY, ATROPHIC LEFT KIDNEY. FUSIFOR M ECTASIA INFRARENAL ABDOMINAL AORTA INCREASED AT 2.7 CM VERSUS 2.4 CM, PREVIOUSLY. MILD S-SHAPED SCO LIOSIS.
== END | disposition home or self-care (01) ==
LOC: RADCTMAIN 13:50
PROVIDERS: ATTEND Urology
DX: N28.89 Other specified disorders of kidney and ureter (principal); J43.9 Emphysema, unspecified; N26.1 Atrophy of kidney (terminal); I25.10 Atherosclerotic heart disease of native coronary artery without angina pectoris; I77.811 Abdominal aortic ectasia
CPT/HCPCS: 71250; 74150

== ENCOUNTER 2021-05-17 17:17 | Inpatient (IN) | payer MEDICARE, OTHER ==
--- NOTE | 2021-05-17 18:08 | ED ---
General Adult HPI - General Chief complaint: Neuro Symptoms/Deficit Stated complaint: left arm numbness, confusion Time Seen by Provider: 05/17/21 17:53 Source: patient Mode of arrival: wheelchair Limitations: no limitations - History of Present Illness Initial comments: Dictation was produced using [employer] dictation software. please excuse any gram matical, word or spelling errors. Chief Complaint: 81-year-old female presents to the emergency department for episodes of vision issues and left-sided numbness History of Present Illness: Patient is an 81-year-old female she is accompanied by a friend who she calls her "[employer]." Patient for the last 3-4 weeks has been having issues with vision problems. Last week she seen the marketing executive for checkups on her diabetic retinopathy. She told marketing executive about her symptoms and told her that she should probably come to the emergency department. Patient states that last week she had an episode that last for several hours where she had left-sided numbness. She had left numbness to her left upper extremity and left lower extremity. 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 She has history of diabetic retinopathy. She is having her retinas monitored by marketing executive for which she describes as bleeding behind the eye. Patient states that she has slight worsening of her vision to both eyes. She states that it looks like flashes both sides. States the symptoms have an ongoing for weeks. She went to the urgent care today and was told to come to the emergency department. She denies any symptoms currently. States her vision is stable. She does not have any paresthesias or sensory issues with her left lower extremity or left upper extremity. The ROS documented in this emergency department record has been reviewed and confirmed by me. Those systems with pertinent positive or negative responses have been documented in the HPI. All other systems are other negative and/or noncontributory. PHYSICAL EXAM: General Impression: Alert and oriented x3, not in acute distress HEENT: Normocephalic atraumatic, extra-ocular movements intact, pupils equal and reactive to light bilaterally, mucous membranes moist. Cardiovascular: Heart regular rate and rhythm Chest: Able to complete full sentences, no retractions, no tachypnea Abdomen: abdomen soft, non-tender, non-distended, no organomegaly Musculoskeletal: Pulses present and equal in all extremities, no peripheral edema Motor: no focal deficits noted Neurological: CN II-XII grossly intact, no focal motor or sensory deficits noted, NIH 0 Skin: Intact with no visualized rashes Psych: Normal affect and mood ED course: Patient is an 81-year-old female redirected from the urgent care to the emergency department for episode of left upper extremity and left lower extremity sensory deficit. States that this happened 7-10 days ago lasted for several hours and improved spontaneously. Physical examination is benign. NIH is 0. Vital signs are within acceptable limits. Laboratory evaluation obtained. CBC, coag panel, metabolic panel is unremarkable. Chest x-ray suggests that there is slight increased vascular markings patient is not having any symptoms of chest pain or shortness of breath. Computed tomography scan of brain is unremarkable. Case discussed with neurologist condominium property manager Dr. Becerra. He requested CT angios the head and neck is ordered and that patient be given Plavix. she reports severe allergy to aspirin. Patient will be admitted to [facility]. EKG interpretation: Ventricular rate 70, normal sinus rhythm,. Interval 180, QRS 70, QTc 449. No OH prolongation, no QTC prolongation, no ST or T-wave changes noted. No old EKG for comparison Overall, this EKG is unremarkable - Related Data Home Medications Medication Instructions Recorded Confirmed Atenolol [Tenormin] 50 mg PO DAILY 05/17/21 05/17/21 Fluticasone Nasal [place] [Flonase 1 spray EA NOSTRIL DAILY 05/17/21 05/17/21 Nasal [place]] Montelukast Sodium [Singulair] 10 mg PO HS PRN 05/17/21 05/17/21 QUEtiapine [SEROquel] 50 mg PO HS 05/17/21 05/17/21 cycloSPORINE [Restasis] 1 drop BOTH EYES BID 05/17/21 05/17/21 diazePAM [Diazepam] 1 - 2 mg PO BID PRN 05/17/21 05/17/21 traMADol HCL [Ultram] 50 mg PO TID PRN 05/17/21 05/17/21 Allergies Allergy/AdvReac Type Severity Reaction Status Date / Time amitriptyline Allergy Unknown Verified 05/17/21 19:30 aspirin Allergy Unknown Verified 05/17/21 19:30 brompheniramine Allergy Unknown Verified 05/17/21 19:30 ciprofloxacin Allergy Unknown Verified 05/17/21 19:30 cyclobenzaprine Allergy Unknown Verified 05/17/21 19:30 darifenacin Allergy Unknown Verified 05/17/21 19:30 doxepin Allergy Unknown Verified 05/17/21 19:30 doxycycline Allergy Unknown Verified 05/17/21 19:30 duloxetine Allergy Unknown Verified 05/17/21 19:30 hyoscyamine Allergy Unknown Verified 05/17/21 19:30 latex Allergy Unknown Verified 05/17/21 19:30 lithium Allergy Unknown Verified 05/17/21 19:30 nortriptyline Allergy Unknown Verified 05/17/21 19:30 omeprazole Allergy Unknown Verified 05/17/21 19:30 oxybutynin Allergy Unknown Verified 05/17/21 19:30 Penicillins Allergy Unknown Verified 05/17/21 19:30 phenylephrine Allergy Unknown Verified 05/17/21 19:30 pregabalin Allergy Unknown Verified 05/17/21 19:30 Sulfa (Sulfonamide Allergy Unknown Verified 05/17/21 19:30 Antibiotics) terbinafine Allergy Unknown Verified 05/17/21 19:30 trazodone Allergy Unknown Verified 05/17/21 19:30 Review of Systems ROS Statement: Those systems with pertinent positive or pertinent negative responses have been documented in the HPI. ROS Other: All systems not noted in ROS Statement are negative. 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 History of Any Multi-Drug Resistant Organisms: None Reported Past Surgical History: Appendectomy, Hernia Repair Additional Past Surgical History / Comment(s): splenectomy, jaw surgery Past Psychological History: No Psychological Hx Reported Smoking Status: Former smoker Past Alcohol Use History: None Reported Past Drug Use History: None Reported General Exam Limitations: no limitations Course Vital Signs 05/17/21 05/17/21 05/17/21 17:34 18:20 19:39 Temperature 98.0 F Pulse Rate 73 72 73 Respiratory 19 20 20 Rate Blood Pressure 188/88 197/89 178/83 O2 Sat by Pulse 97 95 94 L Oximetry 05/17/21 22:33 Temperature Pulse Rate 77 Respiratory 20 Rate Blood Pressure 189/87 O2 Sat by Pulse 96 Oximetry Medical Decision Making - Lab Data Result diagrams: 05/17/21 18:15 05/17/21 18:15 Lab Results 1205/17/21 05/17/21 Range/Units 18:15 18:15 18:15 WBC 12.2 H (3.8-10.6) k/uL RBC 4.40 (3.80-5.40) m/uL Hgb 14.3 (11.4-16.0) gm/dL Hct 43.1 (34.0-46.0) % MCV 98.0 (80.0-100.0) fL MCH 32.5 (25.0-35.0) pg MCHC 33.2 (31.0-37.0) g/dL RDW 13.0 (11.5-15.5) % Plt Count 245 (150-450) k/uL MPV 9.2 Neutrophils % 43 % Lymphocytes % 44 % Monocytes % 8 % Eosinophils % 2 % Basophils % 1 % Neutrophils # 5.2 (1.3-7.7) k/uL Lymphocytes # 5.4 H (1.0-4.8) k/uL Monocytes # 1.0 (0-1.0) k/uL Eosinophils # 0.2 (0-0.7) k/uL Basophils # 0.1 (0-0.2) k/uL Manual Slide Review Performed PT 9.7 (9.0-12.0) sec INR 0.9 (<1.2) APTT 26.0 (22.0-30.0) sec Sodium 133 L (137-145) mmol/L Potassium 4.3 (3.5-5.1) mmol/L Chloride 100 (98-107) mmol/L Carbon Dioxide 27 (22-30) mmol/L Anion Gap 6 mmol/L BUN 20 H (7-17) mg/dL Creatinine 0.89 (0.52-1.04) mg/dL Est GFR (CKD-EPI)AfAm 71 (>60 ml/min/1.73 sqM) Est GFR (CKD-EPI)NonAf 61 (>60 ml/min/1.73 sqM) Glucose 101 H (74-99) mg/dL Calcium 9.5 (8.4-10.2) mg/dL Magnesium 1.7 (1.6-2.3) mg/dL Total Bilirubin 0.4 (0.2-1.3) mg/dL AST 40 H (14-36) U/L ALT 16 (4-34) U/L Alkaline Phosphatase 90 (38-126) U/L Total Protein 7.6 (6.3-8.2) g/dL Albumin 4.1 (3.5-5.0) g/dL Disposition Clinical Impression: Cerebrovascular accident (CVA) Disposition: ADMITTED IP TO THIS [facility] Condition: Critical Referrals: None,Stated [Primary Care Provider] - 1-2 days
[2021-05-17 18:36] LABS: Albumin 4.1 g/dL (3.5-5.0); Calcium 9.5 mg/dL (8.4-10.2); Magnesium 1.7 mg/dL (1.6-2.3); Potassium 4.3 mmol/L (3.5-5.1); Total Bilirubin 0.4 mg/dL (0.2-1.3); Total Protein 7.6 g/dL (6.3-8.2)
[2021-05-17 18:42] LABS: INR 0.9 (<1.2); Prothrombin Time 9.7 sec (9.0-12.0)
--- NOTE | 2021-05-17 18:50 | XR ---
EXAMINATION TYPE: XR chest 1V portable DATE OF EXAM: 05/17/2021 COMPARISON: 10/19/2019 INDICATION: TIA left-sided weakness TECHNIQUE: Single frontal view of the chest is obtained. FINDINGS: The heart size is borderline prominent. The pulmonary vasculature is somewhat prominent. Mild diffuse increased lung markings are present. Correlation recommended for volume overload. IMPRESSION: 1. Clinical correlation recommended for mild volume overload or mild congestive heart failure. Follow -up can be performed.
[2021-05-17 19:14] LABS: Basophils # (A) 0.1 k/uL (0-0.2); Basophils % (A) 1 %; Eosinophils # (A) 0.2 k/uL (0-0.7); Eosinophils % (A) 2 %; HCT 43.1 % (34.0-46.0); HGB 14.3 gm/dL (11.4-16.0); Lymphocytes # (A) 5.4 k/uL (1.0-4.8); Lymphocytes % (A) 44 %; MCH 32.5 pg (25.0-35.0); MCHC 33.2 g/dL (31.0-37.0); Mean Platelet Volume 9.2; Monocytes % (A) 8 %; Neutrophils # (A) 5.2 k/uL (1.3-7.7); Neutrophils % (A) 43 %; Platelet Count 245 k/uL (150-450); WBC 12.2 k/uL (3.8-10.6)
--- NOTE | 2021-05-17 19:27 | CT ---
EXAMINATION TYPE: CT brain wo con DATE OF EXAM: 05/17/2021 COMPARISON: 03/20/2021 INDICATION: confusion, left sided numbness DLP: 1066.4 mGycm, Automated exposure control for dose reduction was used. CONTRAST: None CT of the brain is performed utilizing 3 mm thick sections through the posterior fossa and 3 mm thick sections through the remaining calvarium. Study is performed within 24 hours of arrival to the hosp ital. No abnormal hyperdensity is present to suggest an acute intracranial hemorrhage. No mass lesion is evident. There is hypodensity extending to the left occipital lobe near the watershed region, example image se herb 201 image 24. This is an interval change. Acute infarction be considered. Periventricular white matter hypodensity is present, likely on the basis of chronic white matter isch emic changes. Ventricles and sulci are prominent for the patient age. There is prominence of the extra-axial space . Paranasal sinuses and mastoid air cells within the [id number] are clear. IMPRESSIONS: 1. Acute left occipital lobe infarct. 2. Additional chronic appearing periventricular white matter ischemic type changes with atrophy.
[2021-05-17] MEDS ORDERED: CLOPIDOGREL 75 MG TAB PO STA (21:31)
[2021-05-17] MEDS ORDERED: ASPIRIN 81 MG PO STA (21:31)
[2021-05-17] MEDS ORDERED: NALOXONE 0.4 MG/ML 1 ML VIAL IV PRN (22:38)
[2021-05-17] MEDS ORDERED: FAMOTIDINE 20 MG/2 ML VIAL IV STA (22:41)
[2021-05-17] MEDS ORDERED: methylPREDNISolone SOD SUCCI 125 MG/2 ML VIAL IV STA (22:41)
[2021-05-17] MEDS ORDERED: diphenhydrAMINE 50 MG/ML 1 ML VIAL IVP STA (22:41)
[2021-05-17] MEDS: SODIUM CHLORIDE 0.9% 1,000 ML IV SCH (22:54)
--- NOTE | 2021-05-18 00:44 | CT ---
EXAMINATION TYPE: CT angio head neck DATE OF EXAM: 05/18/2021 COMPARISON: None HISTORY: nuero deficits CT DLP: 386.1 mGycm Automated exposure control for dose reduction was used. CONTRAST: Performed with IV Contrast, patient injected with 65 mL of Isovue 370. Images obtained from the aortic arch to the vertex of the brain with IV contrast. There are 3-D post processed images. There is normal branching pattern of the great vessels on the aortic arch. There is bilateral arteria l flow in the subclavian arteries. There is arterial flow in the in the common internal and external carotid arteries bilaterally. There is wide patency of the carotid artery bifurcations. There is carlos rial flow in both vertebral arteries. There is no evidence of carotid or vertebral artery aneurysm or dissection. There is arterial flow in the vertebrobasilar artery system. There is arterial flow in the anterior m iddle and posterior cerebral arteries. There is normal enhancement of the venous sinuses. There is sh ort segment of stenosis of the proximal left middle cerebral artery. There is 50% luminal narrowing. IMPRESSION: Negative CT angiogram of the neck. There is at least 60% stenosis of the proximal left middle cerebral artery. This could be hemodynamic ally significant.
[2021-05-18 06:33] LABS: Glucose,Whole Blood 179 mg/dL (75-99)
[2021-05-18] MEDS ORDERED: MONTELUKAST 10 MG TAB PO PRN (09:59)
[2021-05-18] MEDS: FLUTICASONE 50MCG/SPRAY NASAL 16GM EA NOSTRIL SCH (11:09)
[2021-05-18] MEDS: atenoloL 50 MG TAB PO SCH (11:10)
[2021-05-18] MEDS: traMADol 50 MG TAB PO PRN ×2 (11:10→20:15)
[2021-05-18] MEDS: CLOPIDOGREL 75 MG TAB PO SCH (11:10)
[2021-05-18] MEDS: cycloSPORINE 0.05% OPHTH 0.4 ML DROPERETTE BOTH EYES SCH ×2 (11:12→20:16)
[2021-05-18 11:55] LABS: Glucose,Whole Blood 143 mg/dL (75-99)
--- NOTE | 2021-05-18 12:47 | ECHOF ---
Referral Reason:CVA MEASUREMENTS -------- HEIGHT: 149.9 cm WEIGHT: 61.2 kg BP: 171/86 RVIDd: 2.9 cm (< 3.3) IVSd: 1.1 cm (0.6 - 1.1) LVIDd: 3.7 cm (3.9 - 5.3) LVPWd: 1.1 cm (0.6 - 1.1) IVSs: 1.9 cm LVIDs: 2.3 cm LVPWs: 1.6 cm LA Diam: 3.1 cm (2.7 - 3.8) LAESV Index (A-L): 26.61 ml/m Ao Diam: 3.5 cm (2.0 - 3.7) AV Cusp: 2.2 cm (1.5 - 2.6) MV EXCURSION: 10.629 mm (> 18.000) MV EF SLOPE: 19 mm/s (70 - 150) EPSS: 0.5 cm MV E Herson: 0.88 m/s MV DecT: 164 ms MV A Herson: 1.54 m/s MV E/A Ratio: 0.57 AR PHT: 1088 ms RAP: 5.00 mmHg RVSP: 24.48 mmHg FINDINGS -------- Sinus rhythm. This was a technically adequate study. The left ventricular size is normal. There is borderline concentric left ventricular hypertrophy. Overall left ventricular systolic function is normal with, an EF between 60 - 65 %. The right ventricle is normal in size. Normal LA size by volume 22+/-6 ml/m2. The right atrium is normal in size. Contrast study was performed with 2 iv injections of 8 ccs of agitated normal saline, at rest, and wi th cough. Negative saline bubbles study. No shunt noted Interatrial and interventricular septum intact. There is mild aortic regurgitation. There is trace mitral regurgitation. Trace tricuspid regurgitation present. Right ventricular systolic pressure is normal at < 35 mmHg. The pulmonic valve was not well visualized. The aortic root size is normal. Normal inferior vena cava with normal inspiratory collapse consistent with estimated right atrial pre ssure of 5 mmHg. There is no pericardial effusion. CONCLUSIONS -------- 1. The left ventricular size is normal. 2. There is borderline concentric left ventricular hypertrophy. 3. Overall left ventricular systolic function is normal with, an EF between 60 - 65 %. 4. Contrast study was performed with 2 iv injections of 8 ccs of agitated normal saline, at rest, and with cough. 5. Negative saline bubbles study. No shunt noted 6. There is mild aortic regurgitation. 7. There is trace mitral regurgitation. 8. Trace tricuspid regurgitation present. 9. There is no pericardial effusion. LETTUCE CUTTER: Aidee Madrid RDCS
--- NOTE | 2021-05-18 13:56 | P.CNNES ---
History of Present Illness Consult date: 05/18/21 Requesting physician: Pako Lopez Reason for Consult: CVA History of Present Illness: Patient is a 81-year-old female came to the hospital yesterday at 5:17 PM for evaluation of visual disturbance. Patient states that 3 days ago she started noticing visual disturbances, which she describes as "flashing lights bila terally, pulsating". She was seen by an jamb cutter yesterday, who recommended her to go to ER to rule out any intracranial process. Patient states that 1 month ago, she developed transient numbness of the left arm and leg. When she tried to get up, her left leg gave out and she fell, hitting her face on the wall. She came to the ER and was diagnosed with nasal bone fracture. On review of records, apparently her ER visit was actually on 03/20/2021. She had mentioned to the ED staff, that she was sitting on the toilet seat for some time, and when she got up, her left leg became numb and she fell. She did not report left arm weakness at that time to the ED staff. However patient states that at the time of the fall, her left arm was also weak, as she was not able to hang onto some support, resulting in the fall with nasal bone fracture. Patient states that the left sided weakness lasted for about couple hours. She did not see herself in the mirror, if there was any facial droop or slurred speech. She has been having some visual issues since then. Patient states that she was seen by Dr. López an [employer] on 05/08/2021, and was ruled out for any ophthalmologic condition or diabetic neuropathy, but was recommended to see an jamb cutter for eyeglasses. Patient saw the jamb cutter on 04/17/2021, who recommended her to go to ER to rule out CVA. He did not find any problems with her eyes. Vital signs on arrival blood pressure 188/87, pulse rate 76, temperature 98.1. It went up to 197/89. Blood test shows WBC 12.2 hemoglobin 14.3 platelets 245. PT/PTT normal. Sodium 133 potassium 4.3, BUN 20, creatinine 0.89. AST 40, ALT 16. Coronavirus PCR negative. Computed tomography scan of head showed acute left occipital lobe infarct. Additional chronic appearing periventricular white matter ischemic type changes with atrophy. Chest x-ray shows clinical cor relation recommended for mild volume overload or mild congestive heart failure. EKG shows normal sinus rhythm, possible left atrial enlargement. Left ventricle hypertrophy. CTA of neck is normal. There is at least 60% stenosis of the proximal left MCA. This could be hemodynamically significant. Patient's home medications include tramadol, Seroquel, atenolol, Singulair, diazepam. Patient does not take any antiplatelet medications at home. Patient states that she is ALLERGY to aspirin, as she develops difficulty breathing, swelling and hives. Patient has history of diabetes for last 40 years, hypertension, osteoarthritis, rheumatoid arthritis, fibromyalgia. Patient has bilateral carpal tunnel syndrome. Patient has smoked 5-6 cigarettes per day off and on for 40 years, quit 1-1/2 years ago. Patient states that she does have some diabetic neuropathy.Patient also suffered from a fall on 10/19/2019, when she was on her way to the grocery store, when she tripped over a curb and fell forwards. She did not suffer from significant injuries at that time. Review of Systems As above in detail. Denies any focal numbness or tingling or focal weakness at this time. Patient complains of some double vision. Denies any loss of vision. No slurred speech. No chest pain or abdominal pain nausea vomiting diarrhea. She does have hearing loss. No fever or chills. No rash. 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 History of Any Multi-Drug Resistant Organisms: None Reported Past Surgical History: Appendectomy, Hernia Repair Additional Past Surgical History / Comment(s): splenectomy, jaw surgery Past Anesthesia/Blood Transfusion Reactions: No Reported Reaction Past Psychological History: Anxiety, Depression, PTSD Smoking Status: Former smoker Past Alcohol Use History: None Reported Past Drug Use History: None Reported Medications and Allergies Home Medications Medication Instructions Recorded Confirmed Type Atenolol [Tenormin] 50 mg PO DAILY 05/17/21 05/17/21 History Fluticasone Nasal [place] [Flonase 1 spray EA NOSTRIL DAILY 05/17/21 05/17/21 History Nasal [place]] Montelukast Sodium [Singulair] 10 mg PO HS PRN 12/01/21 12/01/21 History QUEtiapine [SEROquel] 50 mg PO HS 05/17/21 05/17/21 History cycloSPORINE [Restasis] 1 drop BOTH EYES BID 05/17/21 05/17/21 History diazePAM [Diazepam] 1 - 2 mg PO BID PRN 05/17/21 05/17/21 History traMADol HCL [Ultram] 50 mg PO TID PRN 05/17/21 05/17/21 History Allergies Allergy/AdvReac Type Severity Reaction Status Date / Time amitriptyline Allergy Unknown Verified 05/17/21 19:30 aspirin Allergy Unknown Verified 05/17/21 19:30 brompheniramine Allergy Unknown Verified 05/17/21 19:30 ciprofloxacin Allergy Unknown Verified 05/17/21 19:30 cyclobenzaprine Allergy Unknown Verified 05/17/21 19:30 darifenacin Allergy Unknown Verified 05/17/21 19:30 doxepin Allergy Unknown Verified 05/17/21 19:30 doxycycline Allergy Unknown Verified 05/17/21 19:30 duloxetine Allergy Unknown Verified 05/17/21 19:30 hyoscyamine Allergy Unknown Verified 05/17/21 19:30 latex Allergy Unknown Verified 05/17/21 19:30 lithium Allergy Unknown Verified 05/17/21 19:30 nortriptyline Allergy Unknown Verified 05/17/21 19:30 omeprazole Allergy Unknown Verified 05/17/21 19:30 oxybutynin Allergy Unknown Verified 05/17/21 19:30 Penicillins Allergy Unknown Verified 05/17/21 19:30 phenylephrine Allergy Unknown Verified 05/17/21 19:30 pregabalin Allergy Unknown Verified 05/17/21 19:30 Sulfa (Sulfonamide Allergy Unknown Verified 05/17/21 19:30 Antibiotics) terbinafine Allergy Unknown Verified 05/17/21 19:30 trazodone Allergy Unknown Verified 05/17/21 19:30 Physical Examination - Vital Signs Vital Signs: Vital Signs Temp Pulse Pulse Resp BP BP Pulse Ox 05/18/21 06:35 97.8 F 85 18 144/85 94 L 05/18/21 04:00 97.9 F 78 16 182/90 92 L 05/18/21 00:30 98.1 F 76 18 188/87 96 05/17/21 22:33 77 20 189/87 96 05/17/21 19:39 73 20 178/83 94 L 05/17/21 18:20 72 20 197/89 95 05/17/21 17:34 98.0 F 73 19 188/88 97 Intake and Output 05/17/21 05/18/21 05/18/21 22:59 06:59 14:59 Other: Voiding Method Toilet # Voids 1 Weight 61.235 kg 61.235 kg Patient is an elderly female, very pleasant, in no acute distress. Patient is alert awake oriented to time place and person. Speech and language functions are normal. Attention, concentration is intact, but fund of knowledge is slightly limited. On cranial examination, pupils are round and reacting to light, visual sethi are completely full on confrontation, with no neglect in any quadrant on double simultaneous stimulation. Her extraocular muscles are intact with no nystagmus. Face is symmetric, tongue protrudes to the midline. Palatal elevation and sensation normal, hearing is at least moderately decreased and shoulder shrug normal, facial sensation normal. Shoulder shrug normal. On muscle strength testing, there is no pronator drift and the strength is normal in arms and legs distally and proximally. Deep tendon reflexes are 2-3 in the upper limbs, 3 at the knees bilaterally. Ankles are 1 on the right 2 on the left and plantars are downgoing bilaterally with no clonus. Sensory to touch is equal with no neglect. Cerebellar function showed no ataxia for [id number] testing. No dysdiadochokinesia. Tone and bulk of muscles normal. Gait normal. Patient appears quite steady walking. No wide base. She was slightly unsteady turning around. On general examination, there is no carotid bruit or murmur, S1-S2 audible. Abdomen is soft nontender. Chest is clear. Peripheral pulses are present. No edema. Results - Laboratory Findings CBC and BMP: 05/17/21 18:15 05/17/21 18:15 Abnormal Lab Findings: Abnormal Labs 05/17/21 05/17/21 05/18/21 18:15 18:15 06:32 WBC 12.2 H Lymphocytes # 5.4 H Sodium 133 L BUN 20 H Glucose 101 H POC Glucose (mg/dL) 179 H AST 40 H Assessment and Plan Assessment: * Visual disturbance in both eyes of unclear etiology. Diabetic retinopathy has been ruled out by [employer]. CT head revealed subacute ischemic stroke involving left temporal occipital junction, somewhat in watershed region. * Left MCA stenosis noted on CTA. * Hypertension * Diabetes * Hyperlipidemia * Rheumatoid arthritis. Plan: * MRI of the brain to evaluate for sub-acute stroke. MRA of the head for further evaluation of left MCA stenosis. * 2-D echo revealed normal left ventricular size. Borderline concentric LVH. EF is between 60-65%. Bubble study negative for PFO. No shunt noted. Mild aortic regurgitation. * CTA of head and neck revealed 60% stenosis of the proximal left MCA. Normal CTA of the neck. * Fasting a.m. lipid panel and hemoglobin A1c. * Patient has been started on Plavix 75 mg daily. Patient is ALLERGIC to aspirin. * Permissive hypertension, may keep blood pressure less than 180 systolic. * Telemetric monitoring. * Neuro checks. * We will follow. Thank you for the consult
[2021-05-18 16:21] LABS: Glucose,Whole Blood 136 mg/dL (75-99)
[2021-05-18 19:47] LABS: Glucose,Whole Blood 153 mg/dL (75-99)
[2021-05-18] MEDS: QUEtiapine 50 MG TAB PO SCH (20:15)
--- NOTE | 2021-05-18 22:40 | P.HPIM ---
History of Present Illness H&P Date: 05/18/21 Chief Complaint: seeing lights Patient is a 81-year-old female with a known history of CVA/TIA, hypertension, diabetes type 2, fibromyalgia, osteoarthritis, history of lupus, lymphoma history status post splenectomy, anxiety/depression and PTSD and previous history of smoking presents to ER due to visual disturbance. Patient apparently has been seeing flashes of light bilaterally and pulsating. Patient went to see her doctor's assistant who recommended to go to ER for further evaluation. Patient states that she developed numbness of the left arm and leg about a month ago. When she tried to get up her left leg gave out and fell and hit her face on the wall. She presented to ER and was diagnosed with nasal bone fracture. At the time patient told ER staff that she was sitting on the toilet seat for some time and when she got up her left leg became numb and fell. She did not report left arm weakness at the time to the ED staff. Patient states that her left-sided weakness lasted for about couple hours. Denies slurred speech. She has been having visual issues since then. 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 Patient saw doctor's assistant on 05/17/2021 who recommended to go to ER. On admission patient's blood pressure is elevated with pressure 188/88 pulse 73 respiration 19 pulse ox 97% on room air. Chest x-ray on admission showed clinical correlation recommended for mild volume overload mild congestive heart failure. Follow-up recommended. CT head showed acute left occipital lobe infarct. Additional chronic appearing periventricular white matter ischemic changes with atrophy. EKG showed normal sinus rhythm CT angiogram of the head and neck showed negative CTA of neck. With at least 60% stenosis of the proximal left middle cerebral artery. This could be hemodynamically significant. Laboratory data showed WBC 12.2 hemoglobin 14.3 and platelets 245 Sodium 133 potassium 4.3 chloride 100 BUN 29 creatinine 0.89 Liver enzymes showed AST 40 ALT 16 and alk phos 90. Coronavirus PCR not detected. Review of Systems Constitutional: Patient denies any fever or chills . No generalized weakness or weight loss. Abdomen: Patient denied nausea vomiting and diarrhea and abdominal pain. Cardiovascular: Patient denies any chest pain or short of breath no palpitations. Respiratory: patient denied any cough or sputum production. No shortness of breath Neurologic: Patient denied any numbness or tingling headache. seeing lights Musculoskeletal: Patient denies any complaints of joint swelling or deformity. Skin: Negative Psychiatric: Negative Endocrine: No heat or cold intolerance. No recent weight gain. Genitourinary: No dysuria or hematuria. All other 14 point ROS negative except the above 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 History of Any Multi-Drug Resistant Organisms: None Reported Past Surgical History: Appendectomy, Hernia Repair Additional Past Surgical History / Comment(s): splenectomy, jaw surgery Past Anesthesia/Blood Transfusion Reactions: No Reported Reaction Past Psychological History: Anxiety, Depression, PTSD Smoking Status: Former smoker Past Alcohol Use History: None Reported Past Drug Use History: None Reported Medications and Allergies Home Medications Medication Instructions Recorded Confirmed Type Atenolol [Tenormin] 50 mg PO DAILY 05/17/21 05/17/21 History Fluticasone Nasal [place] [Flonase 1 spray EA NOSTRIL DAILY 05/17/21 05/17/21 History Nasal [place]] Montelukast Sodium [Singulair] 10 mg PO HS PRN 05/17/21 05/17/21 History QUEtiapine [SEROquel] 50 mg PO HS 05/17/21 05/17/21 History cycloSPORINE [Restasis] 1 drop BOTH EYES BID 05/17/21 05/17/21 History diazePAM [Diazepam] 1 - 2 mg PO BID PRN 05/17/21 05/17/21 History traMADol HCL [Ultram] 50 mg PO TID PRN 05/17/21 05/17/21 History Allergies Allergy/AdvReac Type Severity Reaction Status Date / Time amitriptyline Allergy Unknown Verified 05/17/21 19:30 aspirin Allergy Unknown Verified 05/17/21 19:30 brompheniramine Allergy Unknown Verified 05/17/21 19:30 ciprofloxacin Allergy Unknown Verified 05/17/21 19:30 cyclobenzaprine Allergy Unknown Verified 05/17/21 19:30 darifenacin Allergy Unknown Verified 05/17/21 19:30 doxepin Allergy Unknown Verified 05/17/21 19:30 doxycycline Allergy Unknown Verified 05/17/21 19:30 duloxetine Allergy Unknown Verified 05/17/21 19:30 hyoscyamine Allergy Unknown Verified 05/17/21 19:30 latex Allergy Unknown Verified 05/17/21 19:30 lithium Allergy Unknown Verified 05/17/21 19:30 nortriptyline Allergy Unknown Verified 05/17/21 19:30 omeprazole Allergy Unknown Verified 05/17/21 19:30 oxybutynin Allergy Unknown Verified 05/17/21 19:30 Penicillins Allergy Unknown Verified 05/17/21 19:30 phenylephrine Allergy Unknown Verified 05/17/21 19:30 pregabalin Allergy Unknown Verified 05/17/21 19:30 Sulfa (Sulfonamide Allergy Unknown Verified 05/17/21 19:30 Antibiotics) terbinafine Allergy Unknown Verified 05/17/21 19:30 trazodone Allergy Unknown Verified 05/17/21 19:30 Physical Exam Vitals: Vital Signs Temp Pulse Pulse Resp BP BP Pulse Ox 05/18/21 08:00 97.5 F L 86 18 171/86 94 L 05/18/21 06:35 97.8 F 85 18 144/85 94 L 05/18/21 04:00 97.9 F 78 16 182/90 92 L 05/18/21 00:30 98.1 F 76 18 188/87 96 05/17/21 22:33 77 20 189/87 96 05/17/21 19:39 73 20 178/83 94 L 05/17/21 18:20 72 20 197/89 95 05/17/21 17:34 98.0 F 73 19 188/88 97 Intake and Output 05/17/21 05/18/21 05/18/21 22:59 06:59 14:59 Intake Total 240 Balance 240 Intake: Oral 240 Other: Voiding Method Toilet # Voids 1 Weight 61.235 kg 61.235 kg PHYSICAL EXAMINATION: Patient is lying in the bed comfortably, no acute distress, awake alert and oriented.. HEENT: Normocephalic. Neck is supple. Pupils reactive. Nostrils clear. Oral cavity is moist. Neck reveals no JVD, carotid bruits, or thyromegaly. CHEST EXAMINATION: Trachea is central. Symmetrical expansion. Lung sethi clear to auscultation and percussion. CARDIAC: Normal S1, S2 with no gallops. No murmurs ABDOMEN: Soft. Bowel sounds normal. No organomegaly. No abdominal bruits. Extremities: reveal no edema. No clubbing or cyanosis Neurologically awake, alert, oriented x3 with well-coordinated movements. No focal deficits noted Skin: No rash or skin lesions. Psychiatric: Cooperative. Nonsuicidal Musculoskeletal: No joint swelling or deformity. Normal range of motion. Results CBC & Chem 7: 05/17/21 18:15 05/17/21 18:15 Labs: Abnormal Lab Results - Last 24 Hours (Table) 05/17/21 05/17/21 05/18/21 Range/Units 18:15 18:15 06:32 WBC 12.2 H (3.8-10.6) k/uL Lymphocytes # 5.4 H (1.0-4.8) k/uL Sodium 133 L (137-145) mmol/L BUN 20 H (7-17) mg/dL Glucose 101 H (74-99) mg/dL POC Glucose (mg/dL) 179 H (75-99) mg/dL AST 40 H (14-36) U/L Thrombosis Risk Factor Assmnt - DVT/VTE Prophylaxis DVT/VTE Prophylaxis: Pharmacologic Prophylaxis ordered - Choose All That Apply Any of the Below Risk Factors Present?: No Other Risk Factors: Yes Each Risk Factor Represents 3 Points: Age 75 years or older Other congenital or acquired thrombophilia - If yes, enter type in comment: Yes Each Risk Factor Represents 5 Points: Stroke (< 1 month) Thrombosis Risk Factor Assessment Total Risk Factor Score: 8 Thrombosis Risk Factor Assessment Level: High Risk Assessment and Plan Assessment: Acute visual disturbance in both eyes. CT head showed subacute infarct involving the left temporal occipital junction. Rule out acute CVA. Left MCA stenosis noted on CTA head Uncontrolled hypertension Diabetes type 2 [id number] Hyperlipidemia Pancreatitis Plan: Patient will be continued on telemetry monitoring. Complete stroke work-up including MRI of the head and MRA of the brain was ordered. 2D echocardiogram. CT head and CT angiogram of the head and neck was done. Lipid profile, TSH B12 and folate levels will be ordered. Permissive hypertension. Neurology is on board. Follow-up lipid panel. Neurochecks and continue to follow closely. Time with Patient: Greater than 30
[2021-05-18] MEDS ORDERED: lisinopriL 5 MG TAB PO SCH (22:45)
[2021-05-19] MEDS: SODIUM CHLORIDE 0.9% 1,000 ML IV SCH (01:14)
[2021-05-19 05:57] LABS: Glucose,Whole Blood 104 mg/dL (75-99)
[2021-05-19] MEDS: traMADol 50 MG TAB PO PRN ×2 (09:17→19:16)
[2021-05-19] MEDS: CLOPIDOGREL 75 MG TAB PO SCH (09:18)
[2021-05-19] MEDS: cycloSPORINE 0.05% OPHTH 0.4 ML DROPERETTE BOTH EYES SCH ×2 (09:18→19:52)
[2021-05-19] MEDS: atenoloL 50 MG TAB PO SCH (09:18)
[2021-05-19] MEDS: FLUTICASONE 50MCG/SPRAY NASAL 16GM EA NOSTRIL SCH (09:19)
--- NOTE | 2021-05-19 11:39 | MR ---
EXAMINATION TYPE: MR angio head wo con DATE OF EXAM: 05/19/2021 COMPARISON: CT 05/17/2021 HISTORY: Left MCA stenosis? TECHNIQUE: Utilizing 3-D [id number] intracranial MRA of the [place] was performed. FINDINGS: Left vertebral artery dominant. Vertebral basilar system patent. There is poor visualization of the o rigin of the left EGG BREAKING MACHINE OPERATOR. The right EGG BREAKING MACHINE OPERATOR seems to be patent. Distally subsegmental branches of the EGG BREAKING MACHINE OPERATOR to be present. There is mild irregularity involving the M1 segment of the right MCA and more moderate to severe irre gularity involving MCA the left middle cerebral artery. Suspect intracranial atherosclerotic disease. Distal branches are noted to be patent. Anterior cerebral and arteries are also patent. IMPRESSION: 1. Findings are suspicious for vascular occlusive disease involving the left posterior cerebral arter y possibly related to recent thrombus. Some filling of the distal margin of the EGG BREAKING MACHINE OPERATOR is seen on the le ft. Correlate for symptoms compatible with posterior cerebral artery occlusion. 2. Irregularity involving the MCA M1 segments bilaterally far greater on the left correlate for intra cranial atherosclerotic occlusive disease and significant left M1 segment MCA stenosis. Consider gonzales elation with dedicated arteriogram as clinically warranted.
[2021-05-19] MEDS: lisinopriL 5 MG TAB PO SCH (11:41)
--- NOTE | 2021-05-19 11:45 | MR ---
EXAMINATION TYPE: MR brain wo con DATE OF EXAM: 05/19/2021 COMPARISON: NONE HISTORY: CVA TECHNIQUE: T1-weighted sagittal, T2, FLAIR, and diffusion axial, and T2 coronal coronal views of the brain are submitted. FINDINGS: There is abnormal diffusion restriction within the left occipital lobe compatible with recent CT scan measuring approximately 3.2 cm compatible with a left cerebellar acute infarct. Report called to the patient's nurse 11:38 AM 05/19/2021. Mild to moderate generalized degenerative change with diffuse and focal areas of abnormal signal the white matter which are nonspecific. Craniocervical junction maintained. No midline shift or mass effe ct. Changes of chronic sinusitis noted and there appears to be symmetric appearance of the orbits. As previously noted by MRA there appears to be a significant stenosis of the M1 segment of the left MCA . Abrupt termination of the left HOTEL ROOM ATTENDANT also noted on T2 imaging. Abnormal signal involving the randi is nonspecific but suggestive of remote ischemia. Abnormal signal the basal ganglia is likely in the basis of remote lacunar infarct. IMPRESSION: 1. Acute left cerebellar ischemia. No midline shift or mass effect. 2. Degenerative and diffuse nonspecific white matter and brainstem changes most typical of remote isc hemia.
[2021-05-19 12:12] LABS: Glucose,Whole Blood 120 mg/dL (75-99)
--- NOTE | 2021-05-19 15:16 | P.PN ---
Subjective Progress Note Date: 05/19/21 The patient offers no new complaints. Sitting comfortably on the side of the bed. No syncopal spells, no seizure-like activity. Objective - Vital Signs Vital signs: Vital Signs Temp 97.4 F L 05/19/21 11:27 Pulse 65 05/19/21 11:27 Resp 16 05/19/21 11:27 BP 184/82 05/19/21 11:27 Pulse Ox 99 05/19/21 11:27 Intake & Output 05/18/21 05/19/21 05/19/21 18:59 06:59 18:59 Intake Total 520 120 Balance 520 120 Weight 60.6 kg Intake: Intake, IV Titration 160 Amount Sodium Chloride 0.9% 1, 160 000 ml @ 20 mls/hr IV . Q24H ALDA Rx#:[id number] Oral 360 120 Other: Voiding Method Toilet # Voids 1 - Exam Examination is unchanged. Detail testing deferred. Mentation same. Still hard of hearing. - Labs CBC & Chem 7: 05/17/21 18:15 05/17/21 18:15 Labs: Abnormal Lab Results - Last 24 Hours (Table) 05/18/21 05/18/21 05/19/21 Range/Units 16:19 19:44 05:56 POC Glucose (mg/dL) 136 H 153 H 104 H (75-99) mg/dL 05/19/21 Range/Units 11:57 POC Glucose (mg/dL) 120 H (75-99) mg/dL Assessment and Plan Assessment: * Subacute ischemic stroke left posterior temporal occipital junction, possible watershed, presenting with visual disturbance in both eyes. 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 MRA also revealed left SURGICAL TRAINING SPECIALIST occlusion, possibly related to recent thrombus. * Hypertension * Diabetes * Hyperlipidemia * Rheumatoid arthritis. Plan: * MRI of the brain confirmed acute left occipital lobe ischemic infarct. to evaluate for sub-acute stroke. 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 MRA also revealed left SURGICAL TRAINING SPECIALIST occlusion, possibly related to recent thrombus. * Discussed case with Dr. Wallace about the MRI report. He recommended dual antiplatelet medication and statins. Patient is ALLERGIC to aspirin, but will be continued on Plavix 75 mg daily. He wants to follow up patient in his office in 2-4 weeks. * 2-D echo revealed normal left ventricular size. Borderline concentric LVH. EF is between 60-65%. Bubble study negative for PFO. No shunt noted. Mild aortic regurgitation. * CTA of head and neck revealed 60% stenosis of the proximal left MCA. Normal CTA of the neck. * Fasting a.m. lipid panel still pending. Patient started on high-dose statins Lipitor 80 mg daily because of severe intracranial stenosis. * Hemoglobin A1c 6.0, well controlled. * Continue Plavix 75 mg daily indefinitely. Patient is ALLERGIC to aspirin. * May control blood pressure to target less than 150 systolic. Avoid hypotension. * Telemetric monitoring so far showing sinus rhythm in the 60s to 70s. No other arrhythmia. * Neurologically clear, if cleared by internal medicine. * Dr. Nehemias Sheridan will resume neurology service in the morning.
[2021-05-19 16:28] LABS: Chol/HDL Ratio 4.49 Ratio; LDL Cholesterol,Calculated 161.6 mg/dL (0.0-131.0)
[2021-05-19 16:45] LABS: Glucose,Whole Blood 122 mg/dL (75-99)
[2021-05-19] MEDS: QUEtiapine 50 MG TAB PO SCH (19:52)
[2021-05-19 20:17] LABS: Glucose,Whole Blood 118 mg/dL (75-99)
[2021-05-19] MEDS ORDERED: ATORVASTATIN 80 MG TAB PO SCH (21:00)
[2021-05-20] MEDS: SODIUM CHLORIDE 0.9% 1,000 ML IV SCH (00:34)
[2021-05-20 05:22] VITALS: RESP 16
[2021-05-20 08:01] VITALS: BP 167/96; PULSE 85; TEMP 97.7
[2021-05-20] MEDS: CLOPIDOGREL 75 MG TAB PO SCH (08:04)
[2021-05-20] MEDS: atenoloL 50 MG TAB PO SCH (08:04)
[2021-05-20] MEDS: lisinopriL 5 MG TAB PO SCH (08:04)
[2021-05-20] MEDS: traMADol 50 MG TAB PO PRN (08:04)
[2021-05-20] MEDS: FLUTICASONE 50MCG/SPRAY NASAL 16GM EA NOSTRIL SCH (08:04)
[2021-05-20] MEDS: cycloSPORINE 0.05% OPHTH 0.4 ML DROPERETTE BOTH EYES SCH (08:05)
[2021-05-20 10:54] LABS: Basophils % (A) 0 %; Eosinophils # (A) 0.1 k/uL (0-0.7); Eosinophils % (A) 1 %; HCT 41.6 % (34.0-46.0); HGB 13.5 gm/dL (11.4-16.0); Lymphocytes # (A) 3.6 k/uL (1.0-4.8); Lymphocytes % (A) 34 %; MCH 32.1 pg (25.0-35.0); MCHC 32.4 g/dL (31.0-37.0); MCV 99.1 fL (80.0-100.0); Mean Platelet Volume 8.3; Monocytes # (A) 0.7 k/uL (0-1.0); Monocytes % (A) 7 %; Neutrophils # (A) 5.8 k/uL (1.3-7.7); Neutrophils % (A) 55 %; Platelet Count 248 k/uL (150-450); RDW 12.7 % (11.5-15.5); WBC 10.5 k/uL (3.8-10.6)
[2021-05-20 11:12] LABS: Calcium 9.1 mg/dL (8.4-10.2); Potassium 4.4 mmol/L (3.5-5.1)
[2021-05-20 11:27] LABS: Glucose,Whole Blood 123 mg/dL (75-99)
--- NOTE | 2021-05-20 13:35 | P.PN ---
Subjective Progress Note Date: 05/19/21 Principal diagnosis: Acute visual disturbance. Rule out CVA. Patient is a 81-year-old female with a known history of CVA/TIA, hypertension, diabetes type 2, fibromyalgia, osteoarthritis, history of lupus, lymphoma history status post splenectomy, anxiety/depression and PTSD and previous history of smoking presents to ER due to visual disturbance. Patient apparently has been seeing flashes of light bilaterally and pulsating. Patient went to see her camp dishwasher who recommended to go to ER for further evaluation. Patient states that she developed numbness of the left arm and leg about a month ago. When she tried to get up her left leg gave out and fell and hit her face on the wall. She presented to ER and was diagnosed with nasal bone fracture. At the time patient told ER staff that she was sitting on the toilet seat for some time and when she got up her left leg became numb and fell. She did not report left arm weakness at the time to the ED staff. Patient states that her left-sided weakness lasted for about couple hours. Denies slurred speech. She has been having visual issues since then. 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 Patient saw camp dishwasher on 05/17/2021 who recommended to go to ER. On admission patient's blood pressure is elevated with pressure 188/88 pulse 73 respiration 19 pulse ox 97% on room air. Chest x-ray on admission showed clinical correlation recommended for mild volume overload mild congestive heart failure. Follow-up recommended. CT head showed acute left occipital lobe infarct. Additional chronic appearing periventricular white matter ischemic changes with atrophy. EKG showed normal sinus rhythm CT angiogram of the head and neck showed negative CTA of neck. With at least 60% stenosis of the proximal left middle cerebral artery. This could be hemodynamically significant. Laboratory data showed WBC 12.2 hemoglobin 14.3 and platelets 245 Sodium 133 potassium 4.3 chloride 100 BUN 29 creatinine 0.89 Liver enzymes showed AST 40 ALT 16 and alk phos 90. Coronavirus PCR not detected. 05/19/2021 Patient is currently lying in the bed comfortably. Patient says that her vision is better and now more seeing lights. No complaints of chest pain or shortness of breath. No fever no chills. No headache or dizziness or lightheadedness. MRI of the brain was done showed left acute occipital lobe infarct. MRA of the head showed intracranial atherosclerotic disease with evidence of bilateral M1 stenosis. Also revealed left CHORUS MASTER occlusion possibly related to recent thrombus. Neurology discussed with Dr. Wallace about MRI report and recommended dual antiplatelet therapy and statins. Patient is ALLERGIC to aspirin. Continue with Plavix and statins at this time. Patient had workup done including 2-D echocardiogram and CTA head and neck. Neurology is on board. Laboratory data reviewed. Current medications reviewed. Objective - Vital Signs Vital signs: Vital Signs Temp 98.3 F 05/19/21 20:00 Pulse 73 05/19/21 20:00 Resp 16 05/19/21 20:00 BP 149/72 05/19/21 20:00 Pulse Ox 97 05/19/21 20:00 Intake & Output 05/19/21 05/19/21 05/20/21 06:59 18:59 06:59 Intake Total 540 Balance 540 Weight 60.6 kg Intake: Oral 540 Other: Voiding Method Toilet # Voids 1 2 - Exam PHYSICAL EXAMINATION: Patient is lying in the bed comfortably, no acute distress, awake alert and oriented.. HEENT: Normocephalic. Neck is supple. Pupils reactive. Nostrils clear. Oral cavity is moist. Neck reveals no JVD, carotid bruits, or thyromegaly. CHEST EXAMINATION: Trachea is central. Symmetrical expansion. Lung sethi clear to auscultation and percussion. CARDIAC: Normal S1, S2 with no gallops. No murmurs ABDOMEN: Soft. Bowel sounds normal. No organomegaly. No abdominal bruits. Extremities: reveal no edema. No clubbing or cyanosis Neurologically awake, alert, oriented x3 with well-coordinated movements. No focal deficits noted Skin: No rash or skin lesions. Psychiatric: Cooperative. Nonsuicidal Musculoskeletal: No joint swelling or deformity. Normal range of motion. - Labs CBC & Chem 7: 05/20/21 10:35 05/20/21 10:35 Labs: Abnormal Lab Results - Last 24 Hours (Table) 05/19/21 05/19/21 05/19/21 Range/Units 05:56 08:51 11:57 POC Glucose (mg/dL) 104 H 120 H (75-99) mg/dL Triglycerides 230.00 H (0.00-149.00) mg/dL Cholesterol 267.00 H (0.00-200.00) mg/dL LDL Cholesterol, Calc 161.6 H (0.0-131.0) mg/dL VLDL Cholesterol, Calc 46.00 H (5.00-40.00) mg/dL 05/19/21 05/19/21 Range/Units 16:42 20:05 POC Glucose (mg/dL) 122 H 118 H (75-99) mg/dL Triglycerides (0.00-149.00) mg/dL Cholesterol (0.00-200.00) mg/dL LDL Cholesterol, Calc (0.0-131.0) mg/dL VLDL Cholesterol, Calc (5.00-40.00) mg/dL Assessment and Plan Assessment: Subacute ischemic stroke left posterior temporal occipital junction Acute visual disturbance in both eyes. CT head showed subacute infarct involving the left temporal occipital junction. Rule out acute CVA. 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 MRA also revealed left CHORUS MASTER occlusion, possibly related to recent thrombus. Left MCA stenosis noted on CTA head Uncontrolled hypertension Diabetes type 2 [id number] Hyperlipidemia Pancreatitis Plan: Patient will be continued on telemetry monitoring. Complete stroke work-up including MRI of the head and MRA of the brain was ordered. 2D echocardiogram. CT head and CT angiogram of the head and neck was done. Lipid profile, TSH B12 and folate levels within normal limits.. Permissive hypertension. Patient was started on lisinopril for blood pressure control currently. Neurology is on board. Follow-up lipid panel. Neurochecks and continue to follow closely. Time with Patient: Greater than 30
== END 2021-05-20 14:22 | disposition home or self-care (01) | DRG 66 ==
LOC: EC 17:17 → 3SCARD 22:38
PROVIDERS: ADMIT Hospitalist; ATTEND Hospitalist
DX: I63.312 Cerebral infarction due to thrombosis of left middle cerebral artery (principal); G56.03 Carpal tunnel syndrome, bilateral upper limbs; I11.9 Hypertensive heart disease without heart failure; I66.22 Occlusion and stenosis of left posterior cerebral artery; I67.2 Cerebral atherosclerosis; Z20.822 Contact with and (suspected) exposure to COVID-19; M06.9 Rheumatoid arthritis, unspecified; M79.7 Fibromyalgia; S02.2XXA Fracture of nasal bones, initial encounter for closed fracture; W19.XXXA Unspecified fall, initial encounter; W22.09XA Striking against other stationary object, initial encounter; F43.10 Post-traumatic stress disorder, unspecified; F32.A Depression, unspecified; E78.5 Hyperlipidemia, unspecified; E11.40 Type 2 diabetes mellitus with diabetic neuropathy, unspecified; E11.319 Type 2 diabetes mellitus with unspecified diabetic retinopathy without macular edema; M19.90 Unspecified osteoarthritis, unspecified site; I10 Essential (primary) hypertension; R29.700 NIHSS score 0; Z79.02 Long term (current) use of antithrombotics/antiplatelets; Z90.81 Acquired absence of spleen; Z88.6 Allergy status to analgesic agent; Z87.891 Personal history of nicotine dependence; Z86.73 Personal history of transient ischemic attack (TIA), and cerebral infarction without residual deficits; Z85.72 Personal history of non-Hodgkin lymphomas; Z79.899 Other long term (current) drug therapy
CPT/HCPCS: 36415; 70450; 70496; 70498; 70544; 70551; 71045; 80048; 80053; 80061; 83036; 83735; 85025; 85610; 85730; 87635; 93005; 93306; 99285